=== PATIENT | female | born 1935 | race Caucasian/White ===

== ENCOUNTER 2016-12-12 15:20 | Inpatient (IN) | payer OTHER ==
[~2016-12-12] VITALS: Ht 160 cm; Wt 81.0 kg
--- NOTE | ~2016-12-12 | D ---
[facility] [place] [address] DISCHARGE SUMMARY Name: DONITA RICHTER Room #: 461-P [facility] IN M.R.#: [id number] Admission: 12/12/16 Attend Phys: Omid Kamara MD Discharge: 12/19/16 Date of : 37 Report #: [id number] THIS REPORT FOR: //name// CC: Omid Kamara FINAL DIAGNOSES: 1. Asthma exacerbation. 2. Acute bronchitis. 3. Diabetes type 2. 4. Hypertension. 5. Chronic diastolic congestive heart failure. HOSPITAL COURSE: The patient was admitted with shortness of breath. She was treated for asthma exacerbation and acute bronchitis. There was really no major infiltrate on x-ray. She received steroids, antibiotics, nebulized treatments, and her home medications. Blood sugars were elevated due to steroids and Amaryl was added. After receiving IV fluids, the ER felt that there was a degree of pulmonary edema. Echo showed normal LV function by consideration of diastolic dysfunction. Her BNP was elevated. She responded to oral diuretics. She still had a lot of nonproductive cough and wheezing slow recovery process and required inpatient care. Finally on the day of discharge, she was improved with less cough. She was weaned off oxygen. Edema was improved. Blood sugars were down with Amaryl. PHYSICAL EXAMINATION: VITAL SIGNS: On the day of discharge, her vital signs were stable. HEAD AND NECK: Unremarkable. LUNGS: Had very faint expiratory wheezing on the right base. HEART: Regular. ABDOMEN: Soft, normal bowel sounds. EXTREMITIES: Showed 1+ edema. DISPOSITION: She will be discharged to [facility] assisted living. Diabetic diet. Activity as tolerated. Follow up with Dr. Berman in 1 week. She will resume all home medications plus albuterol inhaler p.r.n., Lasix 20 mg daily p.r.n., prednisone taper over 3 weeks, Zithromax for 5 more days, and Amaryl 1 mg daily. <ELECTRONICALLY SIGNED> By: Ever Babin MD 12/20/16899 0837 Ever Babin MD /nt
--- NOTE | ~2016-12-12 | EKG ---
[address] [place] [address] ELECTROCARDIOGRAM REPORT Name: DONITA RICHTER Room #: 461-P ADM IN M.R.#: [id number] Admission: 12/12/16 Attend Phys: Omid Kamara MD Discharge: Date of : 36 Report #: [id number] THIS REPORT FOR: //name// [facility] ED Test Date: 2016-12-12 Test Time: 15:56:47 Pat Name: DONITA RICHTER Department: Room: [facility] Gender: F [employer] Director: MZOOK : 1935 Requested By: Mel Gooden Order Number: [id number] MD: Tru Yoon Measurements Intervals [place] Rate: 91 P: 101 [place]: 188 QRS: 60 QRSD: 86 T: -27 QT: 341 QTc: 420 Interpretive Statements Sinus rhythm Atrial premature complexes Borderline low voltage, extremity leads No previous ECG available for comparison Electronically Signed On 12-13-2016 8:35:44 CDT by Tru Yoon [email or web address] <ELECTRONICALLY SIGNED> By: Tru Yoon MD, [facility] 12/13/16 0835 1556 155 Tru Yoon MD, [facility] /EPI
--- NOTE | ~2016-12-12 | H ---
[facility] [place] [address] HISTORY AND PHYSICAL Name: DONITA RICHTER Room #: 461-P ADM IN M.R.#: [id number] Admission: 12/12/16 Attend Phys: Omid Kamara MD Discharge: Date of : 36 Report #: [id number] THIS REPORT FOR: //name// CC: Omid Kamara DATE OF SERVICE: 12/12/2016 CHIEF COMPLAINT: Weakness and shortness of breath. HISTORY OF PRESENT ILLNESS: The patient is an 81-year-old female from [facility] the [facility] who was admitted through the Emergency Room with weakness, shortness of breath and productive cough. She reports intermittent subjective fevers and global weakness. She has had sinus congestion, cough and wheezing for about 2 weeks. She was diagnosed and treated for influenza in September and then developed pneumonia and was hospitalized for about 5 days. She feels like her symptoms have not cleared. PAST MEDICAL HISTORY: Asthma, COPD, TIA, hypertension, hypothyroidism, dyslipidemia, diabetes type 2, depression, anxiety. PAST SURGICAL HISTORY: Noncontributory. FAMILY HISTORY: Unknown. SOCIAL HISTORY: She lives in the assisted living apartments at of the [facility] for a number of years. No chronic alcohol or tobacco use. ALLERGIES: CODEINE, FENTANYL, AVELOX, PENICILLIN, and SULFA. MEDICATIONS: Vitamin D, albuterol, Xanax, Norvasc, Colace, gabapentin, budesonide inhaler, calcium, Lexapro, Lamictal, aspirin, clonidine, Levoxyl, lisinopril, lovastatin, metformin, hydrocodone, B12, MiraLax, Tylenol, Macrobid prophylactic, hydralazine. REVIEW OF SYSTEMS: She denies headache, chest pain, shortness of breath, abdominal pain, nausea, vomiting, diarrhea, constipation, dysuria, syncope. PHYSICAL EXAMINATION: VITAL SIGNS: Temperature 36.8, pulse 91, respirations 18, blood pressure 136/62, O2 sat 91-96% on room air. GENERAL: She is awake and alert, in no distress. HEENT: Unremarkable. LUNGS: Faint expiratory wheezing. She is not requiring oxygen. HEART: Regular, no murmur. ABDOMEN: Soft, normoactive bowel sounds. EXTREMITIES: No edema. [address] [address] HISTORY AND PHYSICAL Name: DONITA RICHTER Room #: 1-[facility] IN [facility].#: [id number] Admission: 12/12/16 Attend Phys: Omid Kamara MD Discharge: Date of : 36 Report #: [id number] NEUROLOGIC: Motor strength 3-4/5 throughout. LABORATORY DATA: CBC, basic chemistry were fairly unremarkable. Troponin was negative. Albumin 2.9, influenza is negative. Chest x-ray suggests a left lower lobe interstitial infiltrate. ASSESSMENT: 1. Community acquired pneumonia. 2. Chronic obstructive pulmonary disease exacerbation. 3. Hypertension. 4. Diabetes type 2. 5. Mild protein calorie malnutrition with albumin 2.9. PLAN: She will be admitted for pulmonary treatment including antibiotics, nebulized treatments and steroids for now. Home medications to continue and Lovenox for DVT prophylaxis. <ELECTRONICALLY SIGNED> By: Ever Babin MD 12/13/16 1706 0928 1013 Ever Babin MD /nt
--- NOTE | ~2016-12-12 | 2DMMODE ---
[facility] [address] [place] [address] 2 D/M-MODE ECHOCARDIOGRAM Name: DONITA RICHTER S Room #: 461-P ADM IN M.R.#: [id number] Admission: 12/12/16 Attend Phys: Tara Thomas Discharge: Date of : 37 Date of Service: 12/16/16 1244 Report #: [id number] THIS REPORT FOR: //name// APPROVED REPORT Study performed: 12/16/2016 11:12:53 EXAM: Comprehensive 2D, Doppler, and color-flow Echocardiogram Patient Location: Bedside Room #: 461 Blood Pressure: 153/49 mmHg HR: 94 bpm Other Information Study Quality: Good Indications Congestive Heart Failure COPD Diabetes Hypertension/HDD 2D Dimensions RVDd: 37.16 mm LVEF(%): 58.55 (>50%) IVSd: 7.44 (7-11mm) LVOT Diam: 18.83 (18-24mm) LVDd: 43.52 mm PWd: 7.69 (7-11mm) Ascending Aorta: 23.30 mm LVDs: 30.15 (25-40mm) Aortic Root: 25.41 mm Newell's LVEF: 58.55 % Volumes Left Atrial Volume (Systole) Single Plane 4CH: 47.91 mL Single Plane 2CH: 35.83 mL LA ESV Index: 25.00 mL/m2 Aortic Valve AoV Peak Solomon.: 1.38 m/s AO Peak Gr.: 7.64 mmHg LV Max P.22 mmHg LV Max: 1.03 m/s Mitral Valve E/A Ratio: 1.4 [facility] [address] [place] [address] 2 D/M-MODE ECHOCARDIOGRAM Name: DONITA RICHTER Ivet Room #: 461-P [facility] IN [facility].#: [id number] Admission: 12/12/16 Attend Phys: Tara Thomas Discharge: Date of : 37 Date of Service: 12/16/16 1244 Report #: [id number] MV Decel. Time: 160.95 ms MV E Max Solomon.: 1.30 m/s MV A Solomon.: 0.94 m/s MV PHT: 46.68 ms Pulmonary Valve PV Peak Solomon.: 1.17 m/s PV Peak Gr.: 5.43 mmHg Pulmonary Vein P Vein S: 78.2 m/s P Vein D: 66.0 m/s P Vein A Dur.: 26.1 m/s PVa Duration: 92 Tricuspid Valve TR Peak Solomon.: 3.28 m/s TR Peak Gr.: 43.16 mmHg Left Ventricle The left ventricle is normal size. There is normal LV segmental wall motion. There is normal left ventricular wall thickness. Left ventricular systolic function is hyperdynamic. LVEF is >70%. The left ventricular diastolic function is normal. Right Ventricle The right ventricle is normal size. The right ventricular systolic function is normal. Atria The left atrium size is normal. The right atrium size is normal. Aortic Valve The aortic valve is grossly normal in structure. No aortic regurgitation is present. There is no aortic valvular stenosis. Mitral Valve The mitral valve is normal in structure. Mild mitral regurgitation. No evidence of mitral valve stenosis. Tricuspid Valve The tricuspid valve is normal in structure. There is mild tricuspid regurgitation. The right atrial pressure is estimated at mmHg. There is moderate pulmonary hypertension. The estimated PAP was 43 mmHg. Plus the right atrial pressure. [facility] [address] [place] [address] 2 D/M-MODE ECHOCARDIOGRAM Name: DONITA RICHTER Room #: 461-P ADM IN .R.#: [id number] Admission: 12/12/16 Attend Phys: Tara Thomas Discharge: Date of : 37 Date of Service: 12/16/16 1244 Report #: [id number] Pulmonic Valve The pulmonary valve is normal in structure. There is no pulmonic valvular regurgitation. Great Vessels The aortic root is normal in size. IVC is not well visualized. Pericardium There is no pericardial effusion. <Conclusion> Left ventricular systolic function is hyperdynamic. There is normal LV segmental wall motion. LVEF >70%. The left ventricular diastolic function is normal. The aortic valve is grossly normal in structure. No aortic regurgitation or stenosis. The mitral valve is normal in structure. Mild mitral regurgitation. There is moderate pulmonary hypertension. The estimated pulmonary artery pressure was 43 mmHg. Plus the right atrial pressure. There is no pericardial effusion. <ELECTRONICALLY SIGNED> By: Tru Yoon MD, FACC 12/16/16 1244 1244 1244 Tru Yoon MD, FACC /INF
[~2016-12-12 15:20] MED LIST: ACCUNEB SO1.25 MG/1; ASPIRIN325 PO; B12INJ PO; CLONIDINE0.1 PO; COLACE100 MG PO; GABAPENTIN 100100 MG PO; HYDROCODON-ACE1 EAC5; KLOR-CON 1010 MEQ PO; LAMICTAL100 MG PO; LEVOTHYROXINE0.05 MG PO; LEXAPRO 10 MG T10 M1 PO; LISINOPRIL20 MG PO; LORTAB 10-3251 EACH PO; LOVASTATIN 20 M20 MG PO; METFORMIN HCL500 MG; METFORMIN HCL500 MG PO; MILK OF MA2400 MG/10 PO; NORVASC10 MG PO; TUMS; VITAMIN D3400 UNIT PO; XANAX 0.25 MG0.25 MG PO; ZOLOFT100 MG PO; ZOLOFT50 MG PO; [UNRECOGNIZED DRUG - OTHER]
[2016-12-12 15:23] VITALS: BP 150/51
[2016-12-12 17:29] LABS: HEMATOCRIT 30.4 % (37.0-47.0); HEMOGLOBIN 10.2 gm/dL (12.0-15.0); MANUAL DIFF YES; MCH 30.7 pg (26.0-34.0); MCHC 33.5 g/dL (28.0-37.0); MCV 91.7 fL (80.0-100.0); PLATELET COUNT 295 thou/uL (150-400); RBC 3.31 mil/uL (4.20-5.00); RDW 15.2 % (10.5-14.5); WBC 8.4 thou/uL (4.0-11.0)
[2016-12-12 17:38] LABS: ANION GAP 13 mmol/L (7-16); BUN 18 mg/dL (7-18); CALCIUM 9.7 mg/dL (8.5-10.1); CHLORIDE 105 mmol/L (98-107); CO2 19 mmol/L (21-32); CREATININE 1.1 mg/dL (0.6-1.0); GLUCOSE 153 mg/dL (74-106); POTASSIUM 4.4 mmol/L (3.5-5.1); SODIUM 137 mmol/L (136-145)
[2016-12-12 17:45] LABS: ALBUMIN 2.9 g/dL (3.4-5.0); ALKALINE PHOSPHATASE 59 U/L (46-116); SGOT 11 U/L (15-37); SGPT 9 U/L (30-65); TOTAL BILIRUBIN 0.2 mg/dL (<0.1-1.0); TOTAL PROTEIN 7.7 g/dL (6.4-8.2); TROPONIN-I < 0.04 ng/mL (<0.04-0.07)
[2016-12-12 17:48] LABS: ABSOLUTE NEUTROPHILS 4.5 thou/uL (1.4-8.2); TOTAL CELL COUNT 100
[2016-12-12 19:48] VITALS: BP 170/61
[2016-12-12 20:00] VITALS: BP 183/57
[2016-12-12] MEDS ORDERED: MIRALAX17 G1 PO (20:35)
[2016-12-12] MEDS ORDERED: SYSTANE ULTRA1 EACH OP (20:36)
[2016-12-12] MEDS ORDERED: MACROBID 100 M100 M2 PO (20:37)
[2016-12-12] MEDS ORDERED: TYLENOL325 MG PO (20:37)
[2016-12-12] MEDS ORDERED: ASPIR 8181 M1 PO (20:38)
[2016-12-12] MEDS ORDERED: HYDRALAZINE 2525 MG PO (20:38)
[2016-12-12] MEDS ORDERED: LOPERAMIDE 2 MG2 M1 PO (20:39)
[2016-12-12 23:15] VITALS: BP 183/59
[2016-12-13 04:02] VITALS: BP 152/62
[2016-12-13 07:38] VITALS: BP 136/62
[2016-12-13 11:22] VITALS: BP 137/57
[2016-12-13 15:37] VITALS: BP 142/53
[2016-12-13 19:34] VITALS: BP 130/47
[2016-12-14 05:00] VITALS: BP 141/55
[2016-12-14 06:07] LABS: HEMATOCRIT 25.9 % (37.0-47.0); HEMOGLOBIN 8.6 gm/dL (12.0-15.0); MCH 30.4 pg (26.0-34.0); MCHC 33.3 g/dL (28.0-37.0); MCV 91.2 fL (80.0-100.0); RBC 2.83 mil/uL (4.20-5.00); WBC 7.8 thou/uL (4.0-11.0)
[2016-12-14 06:15] LABS: CREATININE 0.9 mg/dL (0.6-1.0); POTASSIUM 4.4 mmol/L (3.5-5.1)
[2016-12-14 07:50] VITALS: BP 131/49
[2016-12-14 11:31] VITALS: BP 112/45
[2016-12-14 16:09] VITALS: BP 125/47
[2016-12-14 19:20] VITALS: BP 136/53
[2016-12-15 03:25] VITALS: BP 99/70
[2016-12-15 06:04] VITALS: BP 142/53
[2016-12-15 06:40] LABS: HEMOGLOBIN 8.9 gm/dL (12.0-15.0); MCHC 32.9 g/dL (28.0-37.0); MCV 91.1 fL (80.0-100.0); RBC 2.96 mil/uL (4.20-5.00); RDW 15.2 % (10.5-14.5); WBC 9.4 thou/uL (4.0-11.0)
[2016-12-15 06:54] LABS: CALCIUM 8.8 mg/dL (8.5-10.1); POTASSIUM 4.3 mmol/L (3.5-5.1)
[2016-12-15 08:51] VITALS: BP 144/51
[2016-12-15 12:27] VITALS: BP 136/43
[2016-12-15 15:58] VITALS: BP 140/46
[2016-12-15 19:47] VITALS: BP 150/42
[2016-12-16 03:33] VITALS: BP 153/49
[2016-12-16 06:56] LABS: HEMATOCRIT 26.5 % (37.0-47.0); HEMOGLOBIN 8.9 gm/dL (12.0-15.0); MCH 30.3 pg (26.0-34.0); MCHC 33.6 g/dL (28.0-37.0); MCV 90.2 fL (80.0-100.0); RBC 2.94 mil/uL (4.20-5.00); WBC 8.4 thou/uL (4.0-11.0)
[2016-12-16 07:06] LABS: CALCIUM 8.6 mg/dL (8.5-10.1); CREATININE 0.9 mg/dL (0.6-1.0); POTASSIUM 3.9 mmol/L (3.5-5.1)
[2016-12-16 08:30] VITALS: BP 151/60
[2016-12-16 14:30] VITALS: BP 140/59
[2016-12-16 18:58] VITALS: BP 157/53
[2016-12-17 04:02] LABS: CALCIUM 8.6 mg/dL (8.5-10.1)
[2016-12-17 05:01] VITALS: BP 155/41
[2016-12-17 08:02] VITALS: BP 147/43
[2016-12-17 11:26] VITALS: BP 147/44
[2016-12-17 15:40] VITALS: BP 177/48
[2016-12-17 19:40] VITALS: BP 170/47
[2016-12-17 23:00] VITALS: BP 156/58
[2016-12-18 04:27] LABS: HEMATOCRIT 28.1 % (37.0-47.0); HEMOGLOBIN 9.4 gm/dL (12.0-15.0); MCH 30.5 pg (26.0-34.0); MCHC 33.6 g/dL (28.0-37.0); MCV 90.6 fL (80.0-100.0); RBC 3.1 mil/uL (4.20-5.00); RDW 15.2 % (10.5-14.5); WBC 8.4 thou/uL (4.0-11.0)
[2016-12-18 04:41] LABS: CALCIUM 8.8 mg/dL (8.5-10.1); CREATININE 0.9 mg/dL (0.6-1.0); POTASSIUM 4.3 mmol/L (3.5-5.1)
[2016-12-18 05:08] VITALS: BP 157/62
[2016-12-18 09:23] VITALS: BP 166/62
[2016-12-18 12:21] VITALS: BP 167/47
[2016-12-18 20:38] VITALS: BP 161/64
[2016-12-19 04:00] VITALS: BP 148/44
[2016-12-19 05:10] LABS: CALCIUM 8.5 mg/dL (8.5-10.1); POTASSIUM 4.1 mmol/L (3.5-5.1)
[2016-12-19] MEDS ORDERED: AZITHROMYCIN 2250 MG PO (08:04)
[2016-12-19] MEDS ORDERED: BENZONATATE100 MG PO (08:05)
[2016-12-19] MEDS ORDERED: MUCINEX TA600 MG/TA1 PO (08:06)
[2016-12-19] MEDS ORDERED: DELSYM COU30 MG/5 M1 PO (08:06)
[2016-12-19] MEDS ORDERED: GLIMEPIRIDE1 MG PO (08:07)
[2016-12-19] MEDS ORDERED: PREDNISONE 20 M20 M1 PO (08:07)
[2016-12-19] MEDS ORDERED: VENTOLIN HFA 1818 GM INH (08:08)
[2016-12-19] MEDS ORDERED: LASIX 20 MG TAB20 MG PO (08:11)
[2016-12-19 08:56] VITALS: BP 138/54
[2016-12-19 09:36] VITALS: BP 138/54
[2016-12-19 13:37] VITALS: BP 141/37
== END 2016-12-19 16:22 | disposition short-term general hospital (02) | DRG 190 ==
LOC: ER 15:20 → 4W 18:04 → EROBS 18:04 → 4W 19:50
PROVIDERS: Internal Medicine Geriatric Medicine; Physician Assistant
DX: J44.0 Chronic obstructive pulmonary disease with (acute) lower respiratory infection (principal); J18.9 Pneumonia, unspecified organism; J45.901 Unspecified asthma with (acute) exacerbation; E44.1 Mild protein-calorie malnutrition; I50.32 Chronic diastolic (congestive) heart failure; J44.1 Chronic obstructive pulmonary disease with (acute) exacerbation; E78.5 Hyperlipidemia, unspecified; E03.9 Hypothyroidism, unspecified; I11.0 Hypertensive heart disease with heart failure; J20.9 Acute bronchitis, unspecified; K21.9 Gastro-esophageal reflux disease without esophagitis; E11.9 Type 2 diabetes mellitus without complications; F32.9 Major depressive disorder, single episode, unspecified; F41.9 Anxiety disorder, unspecified; G89.29 Other chronic pain; Z88.6 Allergy status to analgesic agent; Z88.1 Allergy status to other antibiotic agents; Z88.0 Allergy status to penicillin; Z88.2 Allergy status to sulfonamides; Z68.31 Body mass index [BMI] 31.0-31.9, adult; Z86.73 Personal history of transient ischemic attack (TIA), and cerebral infarction without residual deficits
CPT/HCPCS: 10045

== ENCOUNTER 2017-04-10 21:16 | Emergency (ER) | payer OTHER ==
[~2017-04-10] VITALS: Ht 147.3 cm; Wt 76.7 kg
--- NOTE | ~2017-04-10 | EKG ---
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 : 1935 Requested By: Latanya Jaime Order Number: [id number] MD: Tru Yoon Measurements Intervals [place] Rate: 62 P: 74 OR: 171 QRS: 50 QRSD: 98 T: 18 QT: 425 QTc: 432 Interpretive Statements Sinus rhythm Baseline wander in lead(s) II Compared to ECG 12/12/2016 15:56:47 Atrial premature complex(es) no longer present Electronically Signed On 04-11-2017 10:52:14 CDT by Tru Yoon [email or web address] <ELECTRONICALLY SIGNED> By: Tru Yoon MD, [facility] 04/11/17 1052 27 Tru Yoon MD, [facility] /EPI
[~2017-04-10 21:16] MED LIST changes: +ASPIR 8181 M1 PO; +AZITHROMYCIN 2250 MG PO; +BENZONATATE100 MG PO; +DELSYM COU30 MG/5 M1 PO; +GLIMEPIRIDE1 MG PO; +HYDRALAZINE 2525 MG PO; +LASIX 20 MG TAB20 MG PO; +LOPERAMIDE 2 MG2 M1 PO; +MACROBID 100 M100 M2 PO; +MIRALAX17 G1 PO; +MUCINEX TA600 MG/TA1 PO; +PREDNISONE 20 M20 M1 PO; +SYSTANE ULTRA1 EACH OP; +TYLENOL325 MG PO; +VENTOLIN HFA 1818 GM INH
[2017-04-10 22:20] LABS: URINE BILIRUBIN NEGATIVE (Negative); URINE BLOOD NEGATIVE (Negative); URINE COLOR YELLOW; URINE GLUCOSE-RANDOM* NEGATIVE (Negative); URINE KETONES NEGATIVE (Negative); URINE LEUKOCYTES-REFLEX 1+ (Negative); URINE PROTEIN (DIPSTICK) NEGATIVE (Negative); URINE UROBILINOGEN 0.2 E.U./dl (0.2-1.0)
[2017-04-10 22:30] LABS: CASTS None Seen /LPF (None Seen); CRYSTALS None Seen /LPF (None Seen); SQUAMOUS 0-3 Few /LPF (0-3); URINE RBC 0-2 Rare /HPF (0-2); URINE WBC-REFLEX 0-5 Rare /HPF (0-5)
[2017-04-10 23:14] LABS: HEMATOCRIT 28.9 % (37.0-47.0); HEMOGLOBIN 9.7 gm/dL (12.0-15.0); MCH 29.9 pg (26.0-34.0); MCHC 33.6 g/dL (28.0-37.0); MCV 89.1 fL (80.0-100.0); RBC 3.24 mil/uL (4.20-5.00); RDW 14.3 % (10.5-14.5); WBC 6.3 thou/uL (4.0-11.0)
[2017-04-10 23:24] LABS: ANION GAP 10 mmol/L (7-16); BUN 23 mg/dL (7-18); CALCIUM 9.8 mg/dL (8.5-10.1); CHLORIDE 105 mmol/L (98-107); CO2 24 mmol/L (21-32); GLUCOSE 107 mg/dL (74-106); POTASSIUM 4.4 mmol/L (3.5-5.1); SODIUM 139 mmol/L (136-145)
[2017-04-10 23:29] LABS: ALKALINE PHOSPHATASE 66 U/L (46-116); SGOT 18 U/L (15-37); SGPT 14 U/L (30-65); TOTAL BILIRUBIN 0.3 mg/dL (<0.1-1.0); TOTAL PROTEIN 6.5 g/dL (6.4-8.2); TROPONIN-I < 0.04 ng/mL (<0.04-0.07)
== END 2017-04-11 00:35 | disposition home or self-care (01) ==
LOC: ER 21:16
PROVIDERS: Physician Assistant
DX: T78.1XXA Other adverse food reactions, not elsewhere classified, initial encounter (principal); R60.9 Edema, unspecified; I10 Essential (primary) hypertension; E78.00 Pure hypercholesterolemia, unspecified; E03.9 Hypothyroidism, unspecified; E11.9 Type 2 diabetes mellitus without complications; F32.9 Major depressive disorder, single episode, unspecified; F41.9 Anxiety disorder, unspecified; K21.9 Gastro-esophageal reflux disease without esophagitis; Z88.0 Allergy status to penicillin; Z88.2 Allergy status to sulfonamides; Z88.1 Allergy status to other antibiotic agents; Z88.4 Allergy status to anesthetic agent; Z88.5 Allergy status to narcotic agent; X58.XXXA Exposure to other specified factors, initial encounter

== ENCOUNTER 2017-09-15 19:23 | Inpatient (IN) | payer OTHER, MEDICARE ==
[~2017-09-15] VITALS: Ht 177.8 cm; Wt 69.0 kg
--- NOTE | ~2017-09-15 | H ---
[facility] [address] [place] [address] HISTORY AND PHYSICAL Name: DONITA RICHTER Room #: 447-P ADM IN M.R.#: [id number] Admission: 09/15/17 Attend Phys: Omid Kamara MD Discharge: Date of : 36 Report #: [id number] THIS REPORT FOR: //name// CC: Omid Kamara DATE OF SERVICE: 09/16/2017 HISTORY OF PRESENT ILLNESS: This is an 82-year-old female who lives at [facility] and is under the care of Dr. Kamara and she has not been feeling well recently, has had a couple of falls, the last one was yesterday. There was also some discussion that she may have been a little confused during this whole process. She has had cold-like symptoms recently as well, but really no other specific complaints. PAST MEDICAL HISTORY: Significant for history of hypertension. She has hypothyroidism, diabetes, hyperlipidemia. She has depression. CURRENT MEDICATIONS: Included aerosolized DuoNeb or albuterol. She is on vitamin D, alprazolam, amlodipine, docusate, magnesium, gabapentin, budesonide, Lexapro, lamotrigine, aspirin, clonidine, levothyroxine, lisinopril, lovastatin, metformin, hydrocodone, vitamin B12, MiraLax, aspirin, hydralazine and loperamide. ALLERGIES: Include OPIOIDS, specifically CODEINE, FENTANYL, MOXIFLOXACIN, PENICILLIN and SULFA. SOCIAL HISTORY: She lives at [facility]. REVIEW OF SYSTEMS: No specific cardiac, GI, or complaints at this time, does complain of pain, specifically in her left arm, but no other neurologic complaints and is not confused. PHYSICAL EXAMINATION: GENERAL: Shows her to be in no distress. VITAL SIGNS: Stable. HEENT: Otherwise, negative. She has O2 in place. NECK: Supple, without thyromegaly or adenopathy. CHEST: Clear and coarse. CARDIOVASCULAR: Shows a regular rate and rhythm. ABDOMEN: Soft and nontender, without hepatosplenomegaly. EXTREMITIES: Showed no cyanosis, clubbing or edema. NEUROLOGIC: Showed nothing focal at this time. LABORATORY PARAMETERS: Include a creatinine of 1.3, potassium 5.0, WBC 12.3, hemoglobin 9.9. Urinalysis negative. Influenza antigens negative. CT head, CT spine, CT chest, abdomen and pelvis all were without specificity other than she [address] [address] HISTORY AND PHYSICAL Name: DONITA RICHTER Room #: 447-P ADM IN [facility]#: [id number] Admission: 09/15/17 Attend Phys: Omid Kamara MD Discharge: Date of : 36 Report #: [id number] has extensive widespread bilateral lung patchy consolidative infiltrates. ASSESSMENT: This is an 82-year-old female with upper respiratory tract symptoms, but has an abnormal CT scan that suggested that this might be actually an atypical infection. I need to review the films in detail to make sure that we have the correct differential here. Comorbid conditions of degenerative arthritis, hypertension, hyperlipidemia and depression. She needs inpatient management. We have to stop the vancomycin. I think she had a local reaction in the vein from this but will continue cefepime and azithromycin. <ELECTRONICALLY SIGNED> By: Jasen Berman MD 09/20/17 1211 1026 1051 Jasen Berman MD /[facility]
--- NOTE | ~2017-09-15 | EKG ---
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
--- NOTE | ~2017-09-15 | HC ---
[facility] [place] [address] CONSULTATION Name: DONITA RICHTER Room #: 447-P ADM IN M.R.#: [id number] Admission: 09/15/17 Attend Phys: Omid Kamara MD Discharge: Date of : 36 Report #: [id number] THIS REPORT FOR: //name// CC: Omid Kamara REASON FOR CONSULTATION: I was asked to evaluate concerning bilateral pulmonary infiltrates. HISTORY OF PRESENT ILLNESS: The patient is an 82-year-old past smoker who presents with a several week history of increased malaise, some shortness of breath, intermittent nonproductive cough without fever, chills or sweats. She had episodes of confusion. She has had a few falls. Because of this, she presents to [facility] for further evaluation. She is found to be hypoxic, now on 2 liters of oxygen per nasal cannula. Chest x-ray showed bilateral pulmonary infiltrates, which were confirmed on CT scan noting patchy consolidative infiltrates. She has had no travel. No tuberculosis exposure. No HIV risk factors. She has been in a senior living for 3 years with no positive PPD reported. She has had previous pneumonia. May have underlying COPD, she is on aerosolized DuoNeb. She lives in the senior living unit at [facility]. She does not know of any specific exposure to ill persons. ALLERGIES: CODEINE, FENTANYL, PENICILLIN with rash, SULFA, and MOXIFLOXACIN. She does tolerate cephalosporins. MEDICATIONS: As noted on her MAR, now including prednisone, azithromycin, and cefepime. FAMILY HISTORY: Noncontributory. SOCIAL HISTORY: Quit smoking 3 years ago. No significant alcohol intake. REVIEW OF SYSTEMS: Denies any rash, chest pain, hemoptysis, lymphadenopathy, weight loss, GI or complaints. I do note that she was on nitrofurantoin recently. PHYSICAL EXAMINATION: VITAL SIGNS: Afebrile and hemodynamically stable. GENERAL: She was sitting up in bed, in no acute distress. She had oxygen on at 2 liters per nasal cannula. SKIN: Unremarkable. LYMPH: Unremarkable. Mildly obese. 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 Dentition in fair repair. Several teeth missing. No thrush or lesions otherwise. NECK: Supple. LUNGS: Few crackles heard in the bases. No consolidation. No rub. HEART: Regular without murmur. [address] [address] CONSULTATION Name: DONITA RICHTER Room #: 447-P [facility] IN ..#: [id number] Admission: 09/15/17 Attend Phys: Omid Kamara MD Discharge: Date of : 36 Report #: [id number] ABDOMEN: Soft, nontender, no hepatosplenomegaly or mass. EXTREMITIES: Unremarkable other than trace peripheral edema in the right, 1+ in the left. NEUROLOGIC: Normal. LABORATORY STUDIES: Sodium 140, potassium 4, bicarbonate 25, creatinine 0.9. Liver function test normal. BNP 1158. Hemoglobin 11, platelet count 433,000, WBC 9.6, sedimentation rate 77. CT of the head negative. CT of the spine, degenerative arthritis. CT of the chest, bilateral patchy consolidating infiltrates fairly extensive. Chest x-ray in March noted mild atelectasis or scarring in the left mid lung, otherwise unremarkable. Urinalysis unremarkable. MRSA screen negative. T-SPOT pending. Blood culture is negative. Influenza antigen negative. IMPRESSION: An 82-year-old previous smoker with bilateral consolidating infiltrates. This is new from March 2017. Symptomatically appears to be an acute process. She has an atypical look for aspiration. Other considerations would be atypical viral or bacterial infection, fungal infection, doubt tuberculosis or mycobacterial infection. Vasculitis possible, but less likely given the findings on CT scan. No sinus disease or kidney troubles. RECOMMENDATIONS: We will check viral respiratory panel, fungal serology, ANCA, screen for legionella, mycoplasma, chlamydia. We will see how she does over the next several days. Hold off on video swallow at this time. <ELECTRONICALLY SIGNED> By: Sonido Berman MD 09/22/17 1136 1026 1123 Sonido Berman MD /nt
--- NOTE | ~2017-09-15 | D ---
[facility] [address] [place] [address] DISCHARGE SUMMARY Name: DONITA RICHTER Room #: 447-P [facility] IN M.R.#: [id number] Admission: 09/15/17 Attend Phys: Omid Kamara MD Discharge: 09/25/17 Date of : 36 Report #: [id number] THIS REPORT FOR: //name// CC: Omid Kamara DATE OF SERVICE: 09/25/2017 FINAL DIAGNOSES: 1. Pneumonia. 2. Asthma exacerbation. 3. Diabetes type 2. HOSPITAL COURSE: The patient was admitted from [facility] with shortness of breath and treated based on working diagnosis of pneumonia. She received antibiotics and nebulized treatments. She was slow to improve and she was requiring oxygen with a lot of bronchospasm with wheezing. Steroids were added. Blood sugars were treated in the usual fashion. Chest x-ray and CT were showing bilateral pulmonary infiltrates. Infectious Disease and Pulmonary were consulted. Additional culture studies did not prove a direct organism. With supportive measures and time her respiratory status improved. She was weaned off oxygen and cough, congestion and wheezing improved significantly. However, CT was still showing bilateral infiltrates. Doppler study of the leg was negative for DVT and video swallow was negative for aspiration. Followup CT was showing improvement. PHYSICAL EXAMINATION: GENERAL: On the day of discharge she was awake and alert. VITAL SIGNS: Stable. LUNGS: Clear. HEART: Regular. ABDOMEN: Soft, normoactive bowel sounds. EXTREMITIES: No edema. DISPOSITION: She will be discharged to [facility] with diabetic diet, activity as tolerated and I have signed all her transfer medication list. She will follow up with Dr. Berman and Dr. Robison within 3 weeks. She will have a slow prednisone taper and a followup CT in 3 weeks. <ELECTRONICALLY SIGNED> By: Ever Babin MD 09/26/17 0902 1349 1730 Ever Babin MD /nt
[~2017-09-15 19:23] MED LIST changes: +SYSTANE ULTRA 010 ML OPHTHALMIC; -SYSTANE ULTRA1 EACH OP
[2017-09-15 19:25] VITALS: BP 129/45
[2017-09-15 20:35] LABS: HEMATOCRIT 30.1 % (37.0-47.0); HEMOGLOBIN 9.9 gm/dL (12.0-15.0); MCH 28.8 pg (26.0-34.0); MCHC 32.8 g/dL (28.0-37.0); MCV 87.9 fL (80.0-100.0); RBC 3.43 mil/uL (4.20-5.00); WBC 12.3 thou/uL (4.0-11.0)
[2017-09-15 20:44] LABS: ANION GAP 7 mmol/L (7-16); BUN 27 mg/dL (7-18); CALCIUM 9.7 mg/dL (8.5-10.1); CHLORIDE 103 mmol/L (98-107); CO2 26 mmol/L (21-32); CREATININE 1.3 mg/dL (0.6-1.0); GLUCOSE 98 mg/dL (74-106); SODIUM 136 mmol/L (136-145)
[2017-09-15 20:52] LABS: ALBUMIN 2.9 g/dL (3.4-5.0); SGOT 20 U/L (15-37); SGPT 18 U/L (30-65); TOTAL BILIRUBIN 0.2 mg/dL (<0.1-1.0); TOTAL PROTEIN 6.8 g/dL (6.4-8.2); TROPONIN-I < 0.04 ng/mL (<0.06)
[2017-09-15 22:04] LABS: URINE BILIRUBIN NEGATIVE (Negative); URINE BLOOD NEGATIVE (Negative); URINE CLARITY CLEAR; URINE COLOR YELLOW; URINE GLUCOSE-RANDOM* NEGATIVE (Negative); URINE KETONES NEGATIVE (Negative); URINE LEUKOCYTES-REFLEX NEGATIVE (Negative); URINE NITRITE-REFLEX NEGATIVE (Negative); URINE PROTEIN (DIPSTICK) NEGATIVE (Negative); URINE UROBILINOGEN 0.2 E.U./dl (0.2-1.0)
[2017-09-15 23:30] VITALS: BP 149/47
[2017-09-15 23:55] VITALS: BP 136/44
[2017-09-16 00:25] VITALS: BP 155/61
[2017-09-16 07:45] VITALS: BP 135/43
[2017-09-16 11:16] VITALS: BP 153/40
[2017-09-16 14:42] VITALS: BP 136/43
[2017-09-16 19:28] VITALS: BP 148/43
[2017-09-17 04:10] VITALS: BP 167/45
[2017-09-17 07:49] VITALS: BP 188/54
[2017-09-17 14:24] VITALS: BP 185/69
[2017-09-17] MEDS ORDERED: ANTIFUNGAL30 GM (16:08)
[2017-09-17 19:20] VITALS: BP 181/77
[2017-09-17] MEDS ORDERED: DELSYM30 MG/5 M1 PO (19:34)
[2017-09-17] MEDS ORDERED: NITROFURANTOIN100 MG PO (19:59)
[2017-09-18 00:11] VITALS: BP 138/55
[2017-09-18 04:39] VITALS: BP 157/49
[2017-09-18 06:17] LABS: ABSOLUTE NEUTROPHILS 5.5 thou/uL (1.4-8.2); BASOPHILS 2.5 % (0.0-2.0); EOSINOPHILS 8.2 % (0.0-3.0); HEMATOCRIT 31.8 % (37.0-47.0); HEMOGLOBIN 10.5 gm/dL (12.0-15.0); LYMPHOCYTES 17.1 % (24.0-44.0); MCV 87.6 fL (80.0-100.0); MONOCYTES 11.9 % (1.0-8.0); PLATELET COUNT 378 thou/uL (150-400); POLYS 60.3 % (36.0-66.0); RBC 3.63 mil/uL (4.20-5.00); RDW 14.6 % (10.5-14.5); WBC 9.2 thou/uL (4.0-11.0)
[2017-09-18 06:34] LABS: CALCIUM 9.1 mg/dL (8.5-10.1); CREATININE 0.9 mg/dL (0.6-1.0); POTASSIUM 3.7 mmol/L (3.5-5.1)
[2017-09-18 08:33] VITALS: BP 101/33
[2017-09-18 16:04] VITALS: BP 139/40
[2017-09-18 19:24] VITALS: BP 180/64
[2017-09-19 03:47] VITALS: BP 159/60
[2017-09-19 08:00] VITALS: BP 110/40
[2017-09-19 15:24] VITALS: BP 153/64
[2017-09-19 16:00] VITALS: BP 153/64
[2017-09-19 20:33] VITALS: BP 129/43
[2017-09-20 01:10] VITALS: BP 117/43
[2017-09-20 04:37] LABS: CALCIUM 9.7 mg/dL (8.5-10.1); CREATININE 0.8 mg/dL (0.6-1.0); POTASSIUM 5.3 mmol/L (3.5-5.1)
[2017-09-20 08:03] VITALS: BP 148/47
[2017-09-20 17:07] VITALS: BP 179/42
[2017-09-20 17:55] LABS: BE(vivo) -0.6 mmol/L (-2 to +3); HCO3 22.5 mmol/L (22.0-26.0); PCO2 32.1 mmHg (35.0-45.0); PO2 62.1 mmHg (80.0-100.0); pH 7.463 (7.360-7.450); sO2 93.3 % (92.0-98.0)
[2017-09-20 19:50] VITALS: BP 163/38
[2017-09-21 00:48] VITALS: BP 133/55
[2017-09-21 05:01] VITALS: BP 179/48
[2017-09-21 06:44] LABS: HEMATOCRIT 33.1 % (37.0-47.0); MCH 28.8 pg (26.0-34.0); MCHC 33.3 g/dL (28.0-37.0); MCV 86.5 fL (80.0-100.0); RBC 3.83 mil/uL (4.20-5.00); RDW 14.3 % (10.5-14.5); WBC 9.6 thou/uL (4.0-11.0)
[2017-09-21 06:55] LABS: CALCIUM 10.1 mg/dL (8.5-10.1); CREATININE 0.9 mg/dL (0.6-1.0)
[2017-09-21 19:22] VITALS: BP 137/44
[2017-09-22 04:28] VITALS: BP 161/40
[2017-09-22 04:59] LABS: HEMATOCRIT 31.9 % (37.0-47.0); HEMOGLOBIN 10.4 gm/dL (12.0-15.0); MCH 28.6 pg (26.0-34.0); MCHC 32.7 g/dL (28.0-37.0); MCV 87.5 fL (80.0-100.0); RBC 3.64 mil/uL (4.20-5.00); RDW 14.8 % (10.5-14.5); WBC 8.2 thou/uL (4.0-11.0)
[2017-09-22 05:11] LABS: CALCIUM 9.6 mg/dL (8.5-10.1); CREATININE 0.9 mg/dL (0.6-1.0); POTASSIUM 4.1 mmol/L (3.5-5.1)
[2017-09-22 07:38] VITALS: BP 160/57
[2017-09-22 10:35] VITALS: BP 179/50
[2017-09-22 16:01] VITALS: BP 183/73
[2017-09-22 22:32] VITALS: BP 147/40
[2017-09-23 06:39] VITALS: BP 169/65
[2017-09-23 08:14] VITALS: BP 152/57
[2017-09-23 14:49] VITALS: BP 187/74
[2017-09-23 17:53] VITALS: BP 141/55
[2017-09-23 19:07] LABS: HISTOPLASMA MYCELIAL-ID Negative (Negative)
[2017-09-23 19:59] VITALS: BP 132/42
[2017-09-23 20:08] LABS: HISTOPLASMA MYCELIAL-CF Negative (Neg:<1:2)
[2017-09-24 04:25] VITALS: BP 149/56
[2017-09-24 07:33] VITALS: BP 140/46
[2017-09-24 17:50] VITALS: BP 158/55
[2017-09-24 18:04] VITALS: BP 175/60
[2017-09-24 21:10] VITALS: BP 186/53
[2017-09-25 05:16] LABS: HEMATOCRIT 35.3 % (37.0-47.0); HEMOGLOBIN 11.5 gm/dL (12.0-15.0); MCH 28.7 pg (26.0-34.0); MCHC 32.6 g/dL (28.0-37.0); RBC 4.01 mil/uL (4.20-5.00); RDW 14.8 % (10.5-14.5); WBC 12.4 thou/uL (4.0-11.0)
[2017-09-25 05:25] LABS: CALCIUM 10.3 mg/dL (8.5-10.1); CREATININE 1.1 mg/dL (0.6-1.0); POTASSIUM 4.5 mmol/L (3.5-5.1)
[2017-09-25 08:55] VITALS: BP 147/53
[2017-09-25 08:55] LABS: T-SPOT.TB Negative
[2017-09-25] MEDS ORDERED: OSELB75 PO (13:12)
[2017-09-25] MEDS ORDERED: PREDNISONE 10 M10 MG PO (13:20)
[2017-09-25] MEDS ORDERED: AZITHROMYCIN 2250 MG PO (13:49)
[2017-09-25] MEDS ORDERED: CEFDINIR300 MG PO (13:49)
[2017-09-25 15:12] VITALS: BP 145/62
[2017-09-26 01:06] LABS: ADENOVIRUS Negative (Negative); INFLUENZA A Negative (Negative); INFLUENZA B Negative (Negative); METAPNEUMOVIRUS Negative (Negative); PARAINFLUENZA 1 Negative (Negative); PARAINFLUENZA 2 Negative (Negative); PARAINFLUENZA 3 Negative (Negative); RHINOVIRUS Negative (Negative); RSV A Negative (Negative); RSV B Negative (Negative)
[2018-04-16] MEDS ORDERED: METOPROLOL SUCC50 MG PO (12:17)
[2018-04-16] MEDS ORDERED: AMLODIPINE BESY10 MG PO (12:17)
[2018-04-16] MEDS ORDERED: MUCINEX600 MG PO (12:18)
[2018-04-16] MEDS ORDERED: DELSYM COU30 MG/5 M1 PO (12:18)
[2018-04-16] MEDS ORDERED: COZAAR100 MG PO (12:18)
== END 2017-09-25 15:30 | DRG 193 ==
LOC: ER 19:23 → EROBS 22:55 → 4S 22:55 → 2N 23:54 → 4S 09-18 01:21 → ENTRNSPT 09-25 15:24 → EDTRNSPTSTS 09-25 15:27 → 4S 09-25 15:30
PROVIDERS: Emergency Medicine; Internal Medicine; Internal Medicine Geriatric Medicine; Internal Medicine Pulmonary Disease; Specialist
DX: J18.9 Pneumonia, unspecified organism (principal); J96.00 Acute respiratory failure, unspecified whether with hypoxia or hypercapnia; J45.901 Unspecified asthma with (acute) exacerbation; I10 Essential (primary) hypertension; E78.5 Hyperlipidemia, unspecified; E03.9 Hypothyroidism, unspecified; E11.9 Type 2 diabetes mellitus without complications; K21.9 Gastro-esophageal reflux disease without esophagitis; F32.9 Major depressive disorder, single episode, unspecified; F41.9 Anxiety disorder, unspecified; G89.29 Other chronic pain; Z79.899 Other long term (current) drug therapy; Z88.2 Allergy status to sulfonamides; Z88.5 Allergy status to narcotic agent; Z88.1 Allergy status to other antibiotic agents; Z88.0 Allergy status to penicillin; Z87.891 Personal history of nicotine dependence
CPT/HCPCS: 10081; 10100

== ENCOUNTER 2017-10-13 10:56 | Inpatient (IN) | payer OTHER ==
[~2017-10-13] VITALS: Ht 147.3 cm; Wt 67.5 kg
--- NOTE | ~2017-10-13 | D ---
[facility] [place] [place] [address] DISCHARGE SUMMARY Name: DONITA RICHTER Room #: 439-P [facility] IN M.R.#: [id number] Admission: 10/13/17 Attend Phys: Ever Babin MD Discharge: 10/16/17 Date of : 36 Report #: [id number] THIS REPORT FOR: //name// CC: Ever Kamara FINAL DIAGNOSES: 1. Orthostatic hypotension. 2. Chronic obstructive pulmonary disease. 3. Diabetes type 2. 4. Hypertension. 5. Hyperkalemia. HOSPITAL COURSE: The patient was admitted from [facility] with confusion and weakness. She had relative hyperkalemia on admission and this was treated with fluids and medical support. She was noted to be orthostatic and several of her antihypertensives were held. During her stay, she continued with lisinopril and she had blood pressures supine about 150/60, standing was 105/50. She was able to participate with physical therapy and was walking 60 feet mod independent. Other medications were continued. She had no respiratory issues. PHYSICAL EXAMINATION ON THE DAY OF DISCHARGE: GENERAL: She was resting comfortably in the bedside chair. VITAL SIGNS: She was afebrile with a blood pressure 150/59, O2 sat 95% on room air. LUNGS: Clear with no wheezing. HEART: Had regular sounds. ABDOMEN: Soft. EXTREMITIES: Showed no edema. DISPOSITION: She will return to [facility], diabetic diet, activity as tolerated. Follow up with Dr. Kamara in 1 week. Only antihypertensive at this time is lisinopril 10 mg a day and I have asked them to check standing blood pressures daily. Other home medications to continue. <ELECTRONICALLY SIGNED> By: Ever Babin MD 10/17/17 1108 1242 1810 Ever Babin MD /nt
--- NOTE | ~2017-10-13 | H ---
[facility] [address] [place] [address] HISTORY AND PHYSICAL Name: DONITA RICHTER Room #: 439-P [facility] IN M.R.#: [id number] Admission: 10/13/17 Attend Phys: Ever Babin MD Discharge: 10/16/17 Date of : 36 Report #: [id number] THIS REPORT FOR: //name// CC: Ever Anne Asad DATE OF SERVICE: 10/13/2017 HISTORY OF PRESENT ILLNESS: This is an 82-year-old female with recent fall at [facility]. This is a patient who has been having difficulty over the last couple of months, was in the hospital in August for pneumonia and there was no definitive organism identified. She was then sent back to the [facility] and has been weakened ever since. Now over the last week, she has been more confused, weaker, and had a fall where she may have hit her head, but we do not know the details of the fall and so she was sent to the Emergency Room. In the Emergency Room, CT imaging was negative. There were no focal findings and she was subsequently admitted due to her generalized weakness. PAST MEDICAL HISTORY: Noteworthy for diabetes, hypothyroidism, and hyperlipidemia. She has chronic anxiety. MEDICATIONS: She takes glimepiride, aerosolized albuterol as well as Lamictal, lovastatin, alprazolam, amlodipine, gabapentin, budesonide, aerosolized, calcium carbonate, potassium chloride, Lasix, diphenhydramine, Lexapro, levothyroxine, lisinopril, metformin, vitamin B12, and aspirin. ALLERGIES: INCLUDE CODEINE, FENTANYL, MOXIFLOXACIN, PENICILLIN, AND SULFA, details not clear. FAMILY HISTORY: Really noncontributory at 82 years of age. SOCIAL HISTORY: No smoking or alcohol of any significance. She lives at [facility] and appears to be declining. Family is involved in her care. PHYSICAL EXAMINATION: GENERAL: Shows her sitting at the bedside. She is trying to eat breakfast, nurses at the bedside as well, but she looks very weak and unsteady. VITAL SIGNS: Blood pressure was 150/70. In the Emergency Room 20 mmHg drop in blood pressure. HEENT: Otherwise, negative. NECK: Supple, without thyromegaly or adenopathy. CHEST: Clear. CARDIOVASCULAR: Shows a regular rate and rhythm. I did not hear a murmur. ABDOMEN: Soft and nontender, without hepatosplenomegaly. EXTREMITIES: No cyanosis, clubbing, or edema. [facility] [address] [place] [address] HISTORY AND PHYSICAL Name: DONITA RICHTER Room #: 9-[facility] IN M.R.#: [id number] Admission: 10/13/17 Attend Phys: Ever Babin MD Discharge: 10/16/17 Date of : 36 Report #: [id number] NEUROLOGIC: Showed her to be unsteady in the sitting position. She was able to move all extremities and was able to talk to me and did not seem overly confused at this time. LABORATORY PARAMETERS: Include a white count of 11.1, hemoglobin of 10, platelet count 110,000. Potassium 5.3, creatinine 1.1, glucose 230. Images of the head were negative. CT of the abdomen and pelvis was not helpful. Chest x-ray was negative. ASSESSMENT AND PLAN: This is an 82-year-old female with really significant functional decline and there may be an element of orthostasis involved in this situation. She has comorbid conditions of diabetes, degenerative arthritis, and hypertension. She needs inpatient management due to safety issues and recent fall. There has been no evidence of serious injury from the fall, but we do not know exactly what the cause of this was, so she is going to be admitted and observed for 24-48 hours and adjust her meds, check orthostatic blood pressures, and hopefully she can improve. <ELECTRONICALLY SIGNED> By: Jasen Berman MD 11/21/17 1244 1017 1048 Jasen Berman MD /[facility]
--- NOTE | ~2017-10-13 | EKG ---
[address] [place] [address] ELECTROCARDIOGRAM REPORT Name: DONITA RICHTER Room #: 439-P ADM IN M.R.#: [id number] Admission: 10/13/17 Attend Phys: Ever Babin MD Discharge: Date of : 36 Report #: [id number] THIS REPORT FOR: //name// [facility] ED Test Date: 2017-10-13 Test Time: 11:02:30 Pat Name: DONITA RICHTER Department: Room: 439 Gender: F Septic Cleaner: GATITO : 1935 Requested By: Willard Toth Order Number: [id number] MD: Tru Yoon Measurements Intervals [place] Rate: 69 P: 75 AR: 158 QRS: 25 QRSD: 80 T: 33 QT: 382 QTc: 410 Interpretive Statements Sinus rhythm Minimal ST elevation, inferior leads Compared to ECG 09/15/2017 19:25:57 ST (T wave) deviation now present Atrial premature complex(es) no longer present Electronically Signed On 10-15-2017 15:09:20 SOFTWARE QA SYSTEM SPECIALIST by Tru Yoon [email or web address] <ELECTRONICALLY SIGNED> By: Tru Yoon MD, [facility] 10/15/17 1509 1102 1102 Tru Yoon MD, [facility] /EPI
[~2017-10-13 10:56] MED LIST changes: +ANTIFUNGAL30 GM; +CEFDINIR300 MG PO; +DELSYM30 MG/5 M1 PO; +NITROFURANTOIN100 MG PO; +OSELB75 PO; +PREDNISONE 10 M10 MG PO
[2017-10-13 10:57] VITALS: BP 128/40
[2017-10-13 11:46] LABS: URINE BILIRUBIN NEGATIVE (Negative); URINE BLOOD NEGATIVE (Negative); URINE CLARITY CLEAR; URINE COLOR YELLOW; URINE GLUCOSE-RANDOM* 1+ (Negative); URINE KETONES NEGATIVE (Negative); URINE LEUKOCYTES-REFLEX NEGATIVE (Negative); URINE NITRITE-REFLEX NEGATIVE (Negative); URINE PROTEIN (DIPSTICK) NEGATIVE (Negative); URINE UROBILINOGEN 0.2 E.U./dl (0.2-1.0)
[2017-10-13 12:48] LABS: BASOPHILS 0.4 % (0.0-2.0); EOSINOPHILS 0.6 % (0.0-3.0); HEMATOCRIT 34.7 % (37.0-47.0); HEMOGLOBIN 11.3 gm/dL (12.0-15.0); LYMPHOCYTES 16.4 % (24.0-44.0); MCH 28.9 pg (26.0-34.0); MCHC 32.7 g/dL (28.0-37.0); MCV 88.4 fL (80.0-100.0); MONOCYTES 8.1 % (1.0-8.0); PLATELET COUNT 129 thou/uL (150-400); POLYS 74.5 % (36.0-66.0); RBC 3.92 mil/uL (4.20-5.00); RDW 16.8 % (10.5-14.5); WBC 14.8 thou/uL (4.0-11.0)
[2017-10-13 12:55] LABS: ANION GAP 4 mmol/L (7-16); BUN 38 mg/dL (7-18); CHLORIDE 101 mmol/L (98-107); CO2 27 mmol/L (21-32); CREATININE 1.3 mg/dL (0.6-1.0); GLUCOSE 181 mg/dL (74-106); SODIUM 132 mmol/L (136-145)
[2017-10-13 13:04] LABS: TROPONIN-I < 0.04 ng/mL (<0.06)
[2017-10-13] MEDS ORDERED: KLOR-CON 1010 MEQ PO (14:20)
[2017-10-13] MEDS ORDERED: LASIX 20 MG TAB20 MG PO (14:22)
[2017-10-13] MEDS ORDERED: BENADRYL25 MG PO (14:23)
[2017-10-13] MEDS ORDERED: MILK OF MA2400 MG/10 PO (14:31)
[2017-10-13] MEDS ORDERED: MUCINEX600 MG PO (14:46)
[2017-10-13 16:25] VITALS: BP 147/51
[2017-10-13 18:10] VITALS: BP 133/46
[2017-10-13 20:43] VITALS: BP 149/41
[2017-10-14 02:46] VITALS: BP 145/48
[2017-10-14 03:52] LABS: ABSOLUTE NEUTROPHILS 7.6 thou/uL (1.4-8.2); BASOPHILS 0.3 % (0.0-2.0); EOSINOPHILS 1.8 % (0.0-3.0); HEMATOCRIT 30.3 % (37.0-47.0); LYMPHOCYTES 19.1 % (24.0-44.0); MCH 29.1 pg (26.0-34.0); MCHC 32.9 g/dL (28.0-37.0); MCV 88.3 fL (80.0-100.0); MONOCYTES 10.3 % (1.0-8.0); PLATELET COUNT 110 thou/uL (150-400); POLYS 68.5 % (36.0-66.0); RBC 3.43 mil/uL (4.20-5.00); RDW 16.5 % (10.5-14.5); WBC 11.1 thou/uL (4.0-11.0)
[2017-10-14 03:57] LABS: CALCIUM 8.9 mg/dL (8.5-10.1); CREATININE 1.1 mg/dL (0.6-1.0)
[2017-10-14 04:01] LABS: POTASSIUM 4.9 mmol/L (3.5-5.1)
[2017-10-14 07:55] VITALS: BP 145/46
[2017-10-14 12:00] VITALS: BP 146/81
[2017-10-14 12:01] VITALS: BP 126/72
[2017-10-14 12:02] VITALS: BP 105/71
[2017-10-14 16:12] VITALS: BP 168/48
[2017-10-15 04:18] VITALS: BP 142/93
[2017-10-15 08:00] VITALS: BP 172/53
[2017-10-15 16:00] VITALS: BP 152/63
[2017-10-15 20:52] VITALS: BP 154/34
[2017-10-15 23:54] VITALS: BP 155/49
[2017-10-16 05:45] VITALS: BP 163/55
[2017-10-16 07:35] VITALS: BP 150/59
[2017-10-16 08:14] VITALS: BP 163/55
[2017-10-16] MEDS ORDERED: LISINOPRIL5 MG PO (12:34)
[2017-10-16] MEDS ORDERED: NEURONTIN 300300 M1 PO (12:35)
[2018-04-16] MEDS ORDERED: METOPROLOL SUCC50 MG PO (12:17)
[2018-04-16] MEDS ORDERED: AMLODIPINE BESY10 MG PO (12:17)
[2018-04-16] MEDS ORDERED: DELSYM COU30 MG/5 M1 PO (12:18)
[2018-04-16] MEDS ORDERED: COZAAR100 MG PO (12:18)
[2018-04-16] MEDS ORDERED: MUCINEX600 MG PO (12:18)
== END 2017-10-16 15:50 | DRG 312 ==
LOC: ER 10:56 → 4S 14:36 → EROBS 14:36 → 4S 16:24 → ENTRNSPT 10-16 15:34 → EDTRNSPTSTS 10-16 15:41 → 4S 10-16 15:50
PROVIDERS: Physician Assistant
DX: I95.1 Orthostatic hypotension (principal); G93.41 Metabolic encephalopathy; I10 Essential (primary) hypertension; E78.5 Hyperlipidemia, unspecified; E03.9 Hypothyroidism, unspecified; E11.9 Type 2 diabetes mellitus without complications; E87.6 Hypokalemia; K21.9 Gastro-esophageal reflux disease without esophagitis; F41.9 Anxiety disorder, unspecified; J44.9 Chronic obstructive pulmonary disease, unspecified; F32.9 Major depressive disorder, single episode, unspecified; G89.29 Other chronic pain; Z88.6 Allergy status to analgesic agent; Z88.1 Allergy status to other antibiotic agents; Z88.0 Allergy status to penicillin; Z88.2 Allergy status to sulfonamides; Z79.82 Long term (current) use of aspirin; Z79.899 Other long term (current) drug therapy; Z90.49 Acquired absence of other specified parts of digestive tract; Z90.710 Acquired absence of both cervix and uterus; W18.39XA Other fall on same level, initial encounter; Y93.89 Activity, other specified; Y92.89 Other specified places as the place of occurrence of the external cause; Y99.8 Other external cause status
CPT/HCPCS: 10100

== ENCOUNTER 2018-02-01 11:39 | Emergency (ER) | payer OTHER ==
[~2018-02-01] VITALS: Ht 147.3 cm; Wt 70.3 kg
--- NOTE | ~2018-02-01 | EKG ---
[place] [address] [facility] [address] [place] [address] ELECTROCARDIOGRAM REPORT Name: DONITA RICHTER Room #: [facility]#: [id number] Admission: 02/01/18 Attend Phys: Discharge: 02/01/18 Date of : 36 Report #: [id number] THIS REPORT FOR: //name// [facility] ED Test Date: 2018-02-01 Test Time: 11:49:26 Pat Name: DONITA RICHTER Department: Room: Gender: F Synthetic Chemist: KF : 1935 Requested By: Gabbie Galvan Order Number: [id number] MD: Tru Yoon Measurements Intervals [place] Rate: 70 P: 79 PA: 147 QRS: 48 QRSD: 83 T: 41 QT: 398 QTc: 430 Interpretive Statements Sinus rhythm No significant abnormality Compared to ECG 10/13/2017 11:02:30 ST (T wave) deviation no longer present Electronically Signed On 02-02-2018 9:11:10 CDT by Tru Yoon [email or web address] <ELECTRONICALLY SIGNED> By: Tru Yoon MD, [facility] 02/02/18 0911 1149 1149 Tru Yoon MD, FAC /EPI
[~2018-02-01 11:39] MED LIST changes: +BENADRYL25 MG PO; +LISINOPRIL5 MG PO; +MUCINEX600 MG PO; +NEURONTIN 300300 M1 PO
[2018-02-01 12:39] LABS: HEMATOCRIT 29.5 % (37.0-47.0); HEMOGLOBIN 9.6 gm/dL (12.0-15.0); MCH 28.2 pg (26.0-34.0); MCHC 32.6 g/dL (28.0-37.0); MCV 86.4 fL (80.0-100.0); PLATELET COUNT 296 thou/uL (150-400); RBC 3.41 mil/uL (4.20-5.00); RDW 15.8 % (10.5-14.5); WBC 5.8 thou/uL (4.0-11.0)
[2018-02-01 12:50] LABS: ANION GAP 7 mmol/L (7-16); BUN 20 mg/dL (7-18); CALCIUM 10.2 mg/dL (8.5-10.1); CHLORIDE 103 mmol/L (98-107); CO2 24 mmol/L (21-32); CREATININE 1.1 mg/dL (0.6-1.0); GLUCOSE 105 mg/dL (74-106); SODIUM 134 mmol/L (136-145)
[2018-02-01 12:59] LABS: TROPONIN-I < 0.04 ng/mL (<0.06)
[2018-02-01 13:05] LABS: ABSOLUTE NEUTROPHILS 3.7 thou/uL (1.4-8.2); ANISOCYTOSIS SLIGHT
== END 2018-02-01 15:20 | disposition home or self-care (01) ==
LOC: ER 11:39
PROVIDERS: Emergency Medicine
DX: M54.6 Pain in thoracic spine (principal); M25.511 Pain in right shoulder; I10 Essential (primary) hypertension; E78.5 Hyperlipidemia, unspecified; E03.9 Hypothyroidism, unspecified; E11.9 Type 2 diabetes mellitus without complications; F32.9 Major depressive disorder, single episode, unspecified; F41.9 Anxiety disorder, unspecified; G89.29 Other chronic pain; Z88.0 Allergy status to penicillin; Z88.2 Allergy status to sulfonamides; Z87.891 Personal history of nicotine dependence

== ENCOUNTER 2018-03-30 23:21 | Emergency (ER) | payer OTHER ==
[~2018-03-30] VITALS: Ht 147.3 cm; Wt 71.7 kg
[2018-03-31 01:00] LABS: URINE BILIRUBIN NEGATIVE (Negative); URINE BLOOD TRACE (Negative); URINE CLARITY CLEAR; URINE COLOR YELLOW; URINE GLUCOSE-RANDOM* NEGATIVE (Negative); URINE KETONES NEGATIVE (Negative); URINE NITRITE-REFLEX NEGATIVE (Negative); URINE PROTEIN (DIPSTICK) NEGATIVE (Negative); URINE SPECIFIC GRAVITY <= 1.005 (1.005-1.035); URINE UROBILINOGEN 0.2 E.U./dl (0.2-1.0)
[2018-03-31 01:03] LABS: URINE LEUKOCYTES-REFLEX 1+ (Negative)
[2018-03-31 01:09] LABS: ABSOLUTE NEUTROPHILS 3.7 thou/uL (1.4-8.2); BASOPHILS 1.3 % (0.0-2.0); EOSINOPHILS 4.6 % (0.0-3.0); HEMATOCRIT 33.7 % (37.0-47.0); HEMOGLOBIN 11.1 gm/dL (12.0-15.0); LYMPHOCYTES 31.7 % (24.0-44.0); MCH 27.7 pg (26.0-34.0); MCV 84.1 fL (80.0-100.0); MONOCYTES 10.3 % (1.0-8.0); PLATELET COUNT 217 thou/uL (150-400); POLYS 52.1 % (36.0-66.0); RBC 4.01 mil/uL (4.20-5.00); RDW 17.5 % (10.5-14.5); WBC 7.1 thou/uL (4.0-11.0)
[2018-03-31 01:10] LABS: SQUAMOUS 0-3 Few /LPF (0-3)
[2018-03-31 01:11] LABS: BACTERIA-REFLEX 1-9 Few /HPF (None Seen); CASTS None Seen /LPF (None Seen); CRYSTALS None Seen /LPF (None Seen); URINE RBC 0-2 Rare /HPF (0-2); URINE WBC-REFLEX 0-5 Rare /HPF (0-5)
[2018-03-31 01:16] LABS: ANION GAP 7 mmol/L (7-16); BUN 27 mg/dL (7-18); CALCIUM 8.9 mg/dL (8.5-10.1); CHLORIDE 103 mmol/L (98-107); CO2 26 mmol/L (21-32); GLUCOSE 96 mg/dL (74-106); POTASSIUM 4.3 mmol/L (3.5-5.1); SODIUM 136 mmol/L (136-145)
[2018-03-31 01:22] LABS: ALBUMIN 3.5 g/dL (3.4-5.0); DIRECT BILIRUBIN < 0.1 mg/dL (<0.1-0.3); LIPASE 143 U/L (73-393); SGOT 9 U/L (15-37); SGPT 15 U/L (30-65); TOTAL BILIRUBIN 0.2 mg/dL (<0.1-1.0); TOTAL PROTEIN 7.6 g/dL (6.4-8.2)
== END 2018-03-31 04:13 | disposition home or self-care (01) ==
LOC: ER 23:21
PROVIDERS: Emergency Medicine
DX: K80.20 Calculus of gallbladder without cholecystitis without obstruction (principal); I10 Essential (primary) hypertension; E78.5 Hyperlipidemia, unspecified; E03.9 Hypothyroidism, unspecified; E11.9 Type 2 diabetes mellitus without complications; K21.9 Gastro-esophageal reflux disease without esophagitis; F32.9 Major depressive disorder, single episode, unspecified; F41.9 Anxiety disorder, unspecified; G89.29 Other chronic pain; Z87.891 Personal history of nicotine dependence; Z88.5 Allergy status to narcotic agent; Z88.4 Allergy status to anesthetic agent; Z88.1 Allergy status to other antibiotic agents; Z88.0 Allergy status to penicillin; Z88.2 Allergy status to sulfonamides; Z88.8 Allergy status to other drugs, medicaments and biological substances

== ENCOUNTER 2018-10-20 12:26 | Inpatient (IN) | payer OTHER ==
[~2018-10-20] VITALS: Ht 162.6 cm; Wt 77.4 kg
--- NOTE | ~2018-10-20 | H ---
[facility] [address] [place] [address] HISTORY AND PHYSICAL Name: RICHTERDONITA Cooney Room #: 350-P ADM IN M.R.#: [id number] Admission: 10/20/18 ������������������ Attend Phys: Tara Galdamez Discharge: ������������������ Date of : 36 Report #: [id number] THIS REPORT FOR: //name// CC: Jasen Berman Stanmildred Asad DATE OF SERVICE: 10/20/2018 HISTORY OF PRESENT ILLNESS: This is an 82-year-old female with diarrhea for a week and progressive right-sided abdominal pain. This patient is well-known to our service back at the [facility] and back in August and September of this year, was admitted for generalized weakness and falls, but did improve and she was doing well until last week when she started to have more episodes of diarrhea. She was treated at the senior living with IV fluids with the thought that this was a viral gastroenteritis but it continued the weekend with more abdominal pain and subsequently admitted and the findings of right-sided ascending colitis. PAST MEDICAL HISTORY: Noteworthy for hypothyroidism. She has diabetes, hyperlipidemia, and chronic anxiety. MEDICATIONS: List includes metoprolol, amlodipine, losartan, dextromethorphan, guaifenesin, gabapentin, glimepiride, albuterol, Lamictal, lovastatin, alprazolam, budesonide, escitalopram, levothyroxine, metformin, hydrocodone, and aspirin. ALLERGIES: Multiple allergies to include CODEINE, FENTANYL, AVELOX, PENICILLIN, SULFA, AND CYCLOBENZAPRINE. FAMILY HISTORY: Noncontributory. SOCIAL HISTORY: She lives at [facility]. Does not smoke or drink, is a DNR at this point. REVIEW OF SYSTEMS: Mainly related to right-sided abdominal pain. PHYSICAL EXAMINATION: GENERAL: Shows her to be in no distress. She is awake, alert and oriented. HEENT: Otherwise, negative. NECK: Supple, without thyromegaly or adenopathy. CHEST: Clear. CARDIOVASCULAR: Showed regular rate and rhythm without definite murmur. ABDOMEN: Mildly distended. There was some right-sided abdominal tenderness without rebound. There was no hepatosplenomegaly. EXTREMITIES: Showed some lower extremity edema with some very mild bilateral redness and warmth consistent with venous insufficiency. [address] [address] HISTORY AND PHYSICAL Name: DONITA RICHTER Room #: 350-P ADM IN .R.#: [id number] Admission: 10/20/18 ������������������ Attend Phys: Tara Galdamez Discharge: ������������������ Date of : 36 Report #: [id number] NEUROLOGIC: Negative. LABORATORY PARAMETERS: Showed a white count of 20,000. Her creatinine was 1.2. Lactate was negative. ASSESSMENT AND PLAN: 1. After review of the CT, we find evidence of acute ascending colitis that probably is inflammatory in nature. The possibility that this could be ischemic, but there is significant evidence leading up to this diarrhea illness. Whether there is malignancy, it is not clear at this point, so we will await cultures and start IV metronidazole and hopefully that is all will need. 2. Diabetes. 3. Hypothyroidism. 4. Chronic obstructive pulmonary disease. ��������������������������������������������� ���������������������������������������� By: ��������������������������������������������� 1059 1135 Jasen Berman MD /PMT
[~2018-10-20 12:26] MED LIST changes: +AMLODIPINE BESY10 MG PO; +COZAAR100 MG PO; +METOPROLOL SUCC50 MG PO
[2018-10-20 12:28] VITALS: BP 166/47
[2018-10-20 13:12] LABS: BE(vivo) -3.4 mmol/L (-2 to +3); HCO3 20.3 mmol/L (22.0-26.0); PCO2 31.9 mmHg (35.0-45.0); PO2 60.3 mmHg (80.0-100.0); pH 7.421 (7.360-7.450); sO2 91.9 % (92.0-98.0)
[2018-10-20 13:54] LABS: URINE BILIRUBIN NEGATIVE (Negative); URINE BLOOD 1+ (Negative); URINE CLARITY CLOUDY; URINE COLOR YELLOW; URINE GLUCOSE-RANDOM* NEGATIVE (Negative); URINE KETONES NEGATIVE (Negative); URINE LEUKOCYTES-REFLEX TRACE (Negative); URINE NITRITE-REFLEX NEGATIVE (Negative); URINE PROTEIN (DIPSTICK) 1+ (Negative); URINE UROBILINOGEN 0.2 E.U./dl (0.2-1.0)
[2018-10-20 14:00] LABS: AMORPHOUS URATES Moderate /LPF (None Seen); CASTS None Seen /LPF (None Seen); SQUAMOUS 0-3 Few /LPF (0-3); URINE RBC 0-2 Rare /HPF (0-2); URINE WBC-REFLEX 0-5 Rare /HPF (0-5)
[2018-10-20 14:57] LABS: HEMATOCRIT 29.8 % (37.0-47.0); HEMOGLOBIN 9.6 gm/dL (12.0-15.0); MCH 26.6 pg (26.0-34.0); MCHC 32.3 g/dL (28.0-37.0); MCV 82.3 fL (80.0-100.0); PLATELET COUNT 305 thou/uL (150-400); RBC 3.62 mil/uL (4.20-5.00); RDW 17.3 % (10.5-14.5); WBC 21.1 thou/uL (4.0-11.0)
[2018-10-20 15:08] LABS: CALCIUM 9.8 mg/dL (8.5-10.1); CREATININE 1.2 mg/dL (0.6-1.0); POTASSIUM 3.5 mmol/L (3.5-5.1)
[2018-10-20 15:34] LABS: ABSOLUTE NEUTROPHILS 18.1 thou/uL (1.4-8.2)
[2018-10-20 15:35] LABS: ANISOCYTOSIS 1+
[2018-10-21] VITALS (7 sets, daily range): BP systolic 131–147; BP diastolic 47–58
--- NOTE | 2018-10-21 05:02 | NUR ---
Assumed came up from ER approx 0030. Alert and oriented to self and place. Pt able to provide limited admission hx. [facility] sn[facility] called and obtained the rest of the admission information needed. IVF and antibiotics administered. Stool sample sent to lab to test for c-diff. Bruise noted on pt forehead, likely from a recent fall. Abdomen round and distended. Fall precautions in place. Will continue to monitor and assist with needs.
--- NOTE | 2018-10-21 10:56 | EKG ---
[address] [address] ELECTROCARDIOGRAM REPORT Name: DONITA RICHTER Room #: 350-P ADM IN M.R.#: [id number] ������������������ Admission: 10/20/18 ������������������ Attend Phys: Tara Galdamez Discharge: ������������������ Date of : 36 Report #: [id number] ����������������������������������������������������������������� [id number] THIS REPORT FOR: //name// [facility] ED Test Date: 2018-10-20 Test Time: 12:37:50 Pat Name: DONITA RICHTER Department: Room: 350 Gender: F Tricot Knitter: GALI : 1935 Requested By: Chandu Guadarrama Order Number: [id number] MD: Tru Yoon Measurements Intervals [place] Rate: 82 P: 88 FL: 183 QRS: 71 QRSD: 88 T: 55 QT: 375 QTc: 438 Interpretive Statements Sinus rhythm Nonspecific T abnormalities Baseline wander in lead(s) V1 Compared to ECG 04/05/2018 14:52:13 Atrial premature complex(es) no longer present Electronically Signed On 10-21-2018 10:56:49 HEAD WAITER/WAITRESS by Tru Yoon [email or web address] ��������������������������������������������� <ELECTRONICALLY SIGNED> ���������������������������������������� By: Tru Yoon MD, [facility] ��������������������������������������������� 10/21/18 1056 1237 1237 Tru Yoon MD, [facility] /EPI
--- NOTE | 2018-10-21 15:46 | NUR ---
CONT TO COMPLAIN OF ABDOMINAL PAIN AT THIS TIME. RESPIRATIONS ARE EVEN NON LABORED. PRN PAIN MEDS ADMINISTERED BUT RESIDENT STATES THEY ARE NOT EFFECTIVE. SHE IS ALERT ORIENTED X4. IV TO RIGHT AC NOTED TO BE LEAKING. PATIENT IS A DIFFICULT TO GET STICK. IV TEAM CALLED. WILL CONT WITH PLAN OF CARE.
--- NOTE | 2018-10-22 03:54 | NUR ---
PATIENT IS ALERT AND ORIENTED. PATIENT IS MAX 2 ASSIST TO BSC. PATIENT HAD ONE BM THIS SHIFT. CDIFF WAS NEG. PATIENT HAS WRIGHT IN PLACE FOR I&O. PATIENT DENIES PAIN. PATIENT IS ONE ROOM AIR. PATIENT CAN TURN SELF BUT OCCATIONAL REQUIRES ASSISTANCE. PATIENT HAS BEEN SLEEPING MOST OF THE SHIFT NOT WANTING TO BE DISTRUBED. PATIENT IS NSR ON TELE. PATIENT IS RESTING COMFORTABLEY IN BED. WCM. PATIENT IS PROGRESSING TO GOALS
[2018-10-22 04:40] VITALS: BP 122/61
[2018-10-22 06:26] LABS: ABSOLUTE NEUTROPHILS 14.5 thou/uL (1.4-8.2); BASOPHILS 0.4 % (0.0-2.0); EOSINOPHILS 0.5 % (0.0-3.0); HEMATOCRIT 23.9 % (37.0-47.0); LYMPHOCYTES 6.2 % (24.0-44.0); MCH 27.8 pg (26.0-34.0); MCHC 33.5 g/dL (28.0-37.0); MCV 82.8 fL (80.0-100.0); MONOCYTES 5.2 % (1.0-8.0); PLATELET COUNT 247 thou/uL (150-400); POLYS 87.7 % (36.0-66.0); RBC 2.88 mil/uL (4.20-5.00); RDW 17.7 % (10.5-14.5); WBC 16.5 thou/uL (4.0-11.0)
[2018-10-22 06:40] LABS: CALCIUM 8.6 mg/dL (8.5-10.1); CREATININE 1.1 mg/dL (0.6-1.0); POTASSIUM 3.1 mmol/L (3.5-5.1)
[2018-10-22 07:27] VITALS: BP 142/57
--- NOTE | 2018-10-22 15:44 | NUR ---
ASSESSMENT: CM REVIEWED CHART AND MET WITH PATIENT AT THE BEDSIDE. PT WAS ADMITTED FOR DIARRHEA/ABDOMINAL PAIN. STOOL CULTURE IS PENDING. PT IS A LTC RESIDENT FROM [facility] (3RD FLOOR). PT REPORTS SHE HAS BEEN USING A WHEELCHAIR AND WALKER AT TIMES. CM REACHED OUT TO [facility] [phone] AND ASKED FOR ADMISSIONS. CM SPOKE WITH COLIN CARDENAS WHO REQUEST CLINICAL BE FAXED TO THEIR FAX [phone]. CM FAXED CLINICAL. PATIENT PLANS TO RETURN TO [facility] ONCE MEDICALLY STABLE. PATIENT MAY NEED A COLONOSCOPY. CM WILL CONTINUE TO FOLLOW TO ASSIST NEEDED.
[2018-10-22 16:00] VITALS: BP 134/62
--- NOTE | 2018-10-22 16:42 | NUR ---
ASSUMED PATIENT CARE AT 0700. A/O X4. GENERLIZED WEAKNESS. MAX ASSISTED TO BSC. PATIENT HAD TOW LOOSE STOOL. C/O ABD PAIN. VSS. SLOWLY TOWARDS POC GOALS.
[2018-10-22 19:00] VITALS: BP 151/66
[2018-10-22 23:58] VITALS: BP 145/66
[2018-10-23 04:27] VITALS: BP 131/65
--- NOTE | 2018-10-23 05:23 | NUR ---
PATIENTS CARES WERE ASSUMED AT SHIFT CHANGE. PATIENT WAS ASSESSED AND MEDS WERE PASSED. PATIENT REMAINS ON BEDREST THIS SHIFT DUE TO HER INABILITY TO HOLD HER OWN WEIGHT, THE BED KAM WAS USED. HOURLY ROUNDING WAS DONE. THE BED IS IN A LOW AND LOCKED POSITION
[2018-10-23 05:24] LABS: HEMOGLOBIN 8.6 gm/dL (12.0-15.0); MCH 27.3 pg (26.0-34.0); MCV 82.8 fL (80.0-100.0); RBC 3.15 mil/uL (4.20-5.00); RDW 17.8 % (10.5-14.5); WBC 15.8 thou/uL (4.0-11.0)
[2018-10-23 05:55] LABS: POTASSIUM 3.8 mmol/L (3.5-5.1)
[2018-10-23 07:33] VITALS: BP 153/74
--- NOTE | 2018-10-23 12:42 | NUR ---
on-going assessment: CM REVIEWED CHART. PATIENT IS SLOWLY PROGRESSING TOWARDS DISCHARGE GOALS. PT REMAINS ON CLEARS AND ANBX. PT WILL RETURN TO [facility] ONCE MEDICALLY STABLE.
[2018-10-23 16:29] VITALS: BP 168/59
--- NOTE | 2018-10-23 18:06 | NUR ---
ASSUMED PATIENT CARE AT 0700. A/0 X4. ANXOIUS. SOB WITH EXERTION. C/O ABD PAIN. VOID AFTER WRIGHT DC'D. PATIENT REFUSED Q2H TURN DUE TO NO ABLE TO BREATHING WELL. ONE LOOSE STOOL. SLOWLY TOWARDS POC GOALS.
[2018-10-23 19:30] VITALS: BP 140/69
[2018-10-24 04:10] VITALS: BP 179/62
[2018-10-24 05:19] LABS: HEMATOCRIT 27.4 % (37.0-47.0); MCH 27.2 pg (26.0-34.0); MCV 82.5 fL (80.0-100.0); RBC 3.32 mil/uL (4.20-5.00); RDW 17.7 % (10.5-14.5); WBC 11.6 thou/uL (4.0-11.0)
[2018-10-24 05:27] LABS: CALCIUM 8.9 mg/dL (8.5-10.1); CREATININE 0.8 mg/dL (0.6-1.0); POTASSIUM 3.5 mmol/L (3.5-5.1)
--- NOTE | 2018-10-24 06:18 | NUR ---
PT MAKING SLOW PROGRESS TOWARDS GOALS. ON O2 AT 2L OVERNIGHT. LUNGS WHZ BL UPPER LOBES AND COARSE BL BASES. REPORTING SOA AFTER MULTIPLE COUGHS. ENOURAGED TO TAKE SLOW DEEP BREATH THROUGH THE NOSE WHEN THAT OCCURS. THIS AM, APPROACHED PT TO GIVE SYNTHROID AND PT SUDDENLY STATED "GO AWAY." WHEN ASKED IF SHE RECOGNIZED THIS TEST ENGINE EVALUATOR SHE REPLIED WITH "YEA, I KNOW WHO YOU ARE." PT REFUSED THE SYNTHROID, "I'M NOT TAKING THAT NOW." WHEN ASKED IF ANYTHING BAD HAD HAPPENED PT REPLIED WITH "NO." WHEN ASKED IF SHE WAS UPSET DUE TO FREQUENT INTERRUPTIONS IN HER SLEEP SHE REPLIED, "YES." WILL ASK DAY RN TO GIVE SYNTHROID AND NOT WAKE PT DURING SHIFT REPORT.
[2018-10-24 07:47] VITALS: BP 159/99
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
[2018-10-24 15:00] VITALS: BP 158/72
--- NOTE | 2018-10-24 16:58 | NUR ---
Assumed are of pt at 0700. pt aox4 but showing signs of paranoia this morning, making vague statements suggesting people are playing games on her, but unable to describe any specific persons or events that happened overnight that disturbed her. at this time breathing moderately labored, coarse/wheezy to auscultation, appearing very anxious. physician notified - xanax restarted, chest xray ordered showing small left effusion. one time lasix given with large amt of output. patient now much more at ease. up to chair. breathing improved. largely incontinent w/ female ext cath in place. calls out appropriately. sinus on telemetry. pt progressing toward poc goals.
[2018-10-24 19:25] VITALS: BP 156/65
--- NOTE | 2018-10-25 00:58 | NUR ---
ASSUMED CARE OF PT AT 1900. A&Ox4, COOPERATIVE. A FEW ODD STATEMENTS ABOUT HOSPITAL STAFF BUT RESPONDING WELL TO INTERACTIONS W/ CURRENT TECH AND RN. VS STABLE. SR ON TELE. NO RESP DISTRESS, COMPLIANT W/ BREATHING TXs. REQUESTED BEDPAN 1X BUT UNABLE TO VOID. CURRENTLY RESTING. PROGRESSING TOWARDS POC GOALS.
[2018-10-25 05:10] VITALS: BP 154/79
[2018-10-25 05:31] LABS: HEMATOCRIT 29.9 % (37.0-47.0); HEMOGLOBIN 9.8 gm/dL (12.0-15.0); MCHC 32.7 g/dL (28.0-37.0); MCV 82.8 fL (80.0-100.0); RBC 3.62 mil/uL (4.20-5.00); RDW 17.7 % (10.5-14.5); WBC 11.8 thou/uL (4.0-11.0)
[2018-10-25 05:50] LABS: CALCIUM 8.9 mg/dL (8.5-10.1); CREATININE 0.7 mg/dL (0.6-1.0)
[2018-10-25 07:46] VITALS: BP 170/67
--- NOTE | 2018-10-25 12:41 | NUR ---
ON-GOING ASSESSMENT: CM REVIEWED CHART. PT IS PROGRESSING TOWARDS DISCHARGE GOALS. PT IS CONTINUING HER ANBX AND SLOLY IMPROVING. CM NOTIFIED LSOP THAT PATIENT MAY BE READY FOR DISCHARGE IN THE NEXT 1-2 DAYS. CM WILL CONTINUE TO FOLLOW TO ASSIST NEEDED.
[2018-10-25 15:52] VITALS: BP 151/64
--- NOTE | 2018-10-25 15:58 | NUR ---
Assumed care of Pt at 0700. Pt AOX4 in no acute distress. Breathing improved today, remains on supplemental oxygen. pain well controlled with current regimen. hypertensive this AM - physician notified - med regimen adjusted - bp improved. up w/ 1 assist to BSC - bm today. up to chair for most of day. sinus on telemetry. no other remarkable changes to report. anticipate d/c 1-2 days back to [place]. pt progressing toward poc goals.
[2018-10-25 20:20] VITALS: BP 148/70
--- NOTE | 2018-10-26 05:01 | NUR ---
ASSUMED PT CARE AROUND 1900. A&OX4, FORGETFUL. DENIES ANY PAIN. UP TO BSC. HAD ONE BOWEL MOVEMENT THIS SHIFT. PT SLEPT MOST OF THE NIGHT. RESP EVEN AND UNLABORED. VSS. NO MAJOR COMPLAINTS THIS SHIFT. PROGRESSING TOWARD POC GOALS. WILL CONTINUE TO MONITOR FURTHER.
[2018-10-26 05:20] VITALS: BP 138/68
[2018-10-26 05:25] VITALS: BP 138/68
[2018-10-26 05:49] LABS: HEMATOCRIT 30.6 % (37.0-47.0); MCH 26.8 pg (26.0-34.0); MCHC 32.7 g/dL (28.0-37.0); RBC 3.73 mil/uL (4.20-5.00); RDW 17.5 % (10.5-14.5); WBC 11.6 thou/uL (4.0-11.0)
[2018-10-26 06:02] LABS: CALCIUM 8.9 mg/dL (8.5-10.1); CREATININE 0.7 mg/dL (0.6-1.0); POTASSIUM 3.5 mmol/L (3.5-5.1)
[2018-10-26 06:22] LABS: % SATURATION 28 % (20-39); IRON 50 ug/dL (50-170); TIBC 176 ug/dL (250-450)
[2018-10-26 06:46] LABS: FOLIC ACID 14.8 ng/mL (8.6-58.9); TSH 2.983 uIU/mL (0.358-3.740)
[2018-10-26 07:42] VITALS: BP 173/59
[2018-10-26 08:10] VITALS: BP 173/59
[2018-10-26] MEDS ORDERED: METRONIDAZOLE500 M4 PO (11:03)
--- NOTE | 2018-10-26 12:44 | NUR ---
ON-GOING ASSESSMENT: CM REVIEWED CHART AND MET WITH PATIENT AT THE BEDSIDE. PT HAS ORDERS TO DISCHARGE BACK TO [facility] TODAY. CM ORDERED CHART COPY. CM SPOKE WITH BEDSIDE RN TO GIVE HER THE NUMBER FOR REPORT [phone] AND ASK FOR THE THIRD FLOOR NURSE CHRISTOPHER. CM FAXED D/C ORDERS AND CONFIRMED RECEIPT. SHEILA SPOKE WITH PATIENTS DAUGHTER FREDO WHO IS PRESENT AND SHE IS UNABLE TO PROVIDE TRANSPORTATION FOR PATIENT TODAY. CM REACHED OUT TO [facility] WHO REQUEST [facility] TRANSPORTATION. CM CONTACTED [facility] AND THEY ARE PICKING PATIENT UP AT 2:00PM. CM NOTIFIED BEDSIDE RN AND PATIENT. PT REPORTS NO FURTHER NEEDS FROM CM AT THIS TIME.
--- NOTE | 2018-10-26 15:26 | NUR ---
Assumed care of patient at 0700. Vitals have been stable. Patient is alert and oriented x4, pleasant. Denies pain, SOB or nausea / vomiting. Patient feels much improved since admission. Still weak, but weakness has also improved. Up with SBA, GB and walker. Sat in chair this afternoon. One loose BM today. Is ready to discharge home. Discharge orders received. Report called to Jaquan at [facility]. IV and telemetry discontinued. Belongings gathered. Patient transported back to facility via wheelchair.
--- NOTE | 2018-10-31 12:37 | D ---
[facility] [address] [place] [address] DISCHARGE SUMMARY Name: DONITA RICHTER Room #: 350-P [facility] IN M.R.#: [id number] Admission: 10/20/18 ������������������ Attend Phys: Tara Galdamez Discharge: 10/26/18 ������������������ Date of : 36 Report #: [id number] THIS REPORT FOR: //name// CC: Jasen Anne Asad DATE OF SERVICE: 10/26/2018 FINAL DIAGNOSES: 1. Colitis. 2. Asthma exacerbation. 3. Hypertension. HOSPITAL COURSE: The patient was admitted with abdominal pain and diarrhea. She was treated empirically for infectious colitis. Stool studies were negative for C. diff colitis and negative for bacterial culture. She was treated empirically and conservatively with IV antibiotics including Cipro and Flagyl. She had some pulmonary complications and IV diuretics were ordered along with pulmonary treatments for her underlying asthma. Home medications were continued. She had no other interval complication. With conservative treatment, her symptoms improved significantly. Her abdominal pain resolved and she had no more crampy gases type pain, stools were still soft, but the liquid diarrhea had resolved and she was down to 1 or 2 soft bowel movements a day. She was tolerating a regular diet and her other home medications. Her white count was trending back towards normal. PHYSICAL EXAMINATION: GENERAL: On the day of discharge, she was awake and alert, sitting up in the edge of the bed. VITAL SIGNS: Stable. LUNGS: Clear. HEART: Regular. ABDOMEN: Soft, normoactive bowel sounds. No rebound or guarding. EXTREMITIES: Showed no edema. DISPOSITION: She will be discharged to [facility]. Resume all usual medications, diet and activity. She will add Flagyl 500 mg t.i.d. for a week. Follow up with Dr. Yin in 1-2 weeks. She can consider down the road to follow up with GI for outpatient endoscopy if she wishes further invasive workup. ��������������������������������������������� <ELECTRONICALLY SIGNED> ���������������������������������������� By: Ever Babin MD ��������������������������������������������� 10/31/18 1237 1233 22 Ever Babin MD /nt
== END 2018-10-26 15:10 | DRG 391 ==
LOC: ER 12:26 → 3W 18:22 → EROBS 18:22 → 3W 10-21
PROVIDERS: Emergency Medicine; Internal Medicine Gastroenterology; Internal Medicine Geriatric Medicine; ADMIT Internal Medicine
DX: K52.9 Noninfective gastroenteritis and colitis, unspecified (principal); G92 Toxic encephalopathy; J45.901 Unspecified asthma with (acute) exacerbation; I10 Essential (primary) hypertension; E78.5 Hyperlipidemia, unspecified; E11.9 Type 2 diabetes mellitus without complications; F32.9 Major depressive disorder, single episode, unspecified; E89.0 Postprocedural hypothyroidism; F41.9 Anxiety disorder, unspecified; G89.29 Other chronic pain; J44.9 Chronic obstructive pulmonary disease, unspecified; D72.829 Elevated white blood cell count, unspecified; I25.10 Atherosclerotic heart disease of native coronary artery without angina pectoris; K21.9 Gastro-esophageal reflux disease without esophagitis; Z87.81 Personal history of (healed) traumatic fracture; Z90.710 Acquired absence of both cervix and uterus; Z88.6 Allergy status to analgesic agent; Z88.0 Allergy status to penicillin; Z88.2 Allergy status to sulfonamides; Z88.8 Allergy status to other drugs, medicaments and biological substances; Z87.891 Personal history of nicotine dependence; Z79.82 Long term (current) use of aspirin; Z79.899 Other long term (current) drug therapy
CPT/HCPCS: 10879

== ENCOUNTER 2019-06-07 10:19 | Inpatient (IN) | payer OTHER ==
[~2019-06-07] VITALS: Ht 147.3 cm; Wt 75.8 kg
[2019-06-07 10:19] VITALS: BP 96/39
[~2019-06-07 10:19] MED LIST changes: +METRONIDAZOLE500 M4 PO
[2019-06-07 11:06] LABS: ABSOLUTE NEUTROPHILS 3.5 thou/uL (1.4-8.2); BASOPHILS 0.8 % (0.0-2.0); EOSINOPHILS 5.4 % (0.0-3.0); HEMATOCRIT 31.2 % (37.0-47.0); HEMOGLOBIN 10.1 gm/dL (12.0-15.0); LYMPHOCYTES 23.2 % (24.0-44.0); MCH 27.8 pg (26.0-34.0); MCHC 32.5 g/dL (28.0-37.0); MCV 85.7 fL (80.0-100.0); MONOCYTES 10.1 % (1.0-8.0); PLATELET COUNT 256 thou/uL (150-400); POLYS 60.5 % (36.0-66.0); RBC 3.63 mil/uL (4.20-5.00); WBC 5.7 thou/uL (4.0-11.0)
[2019-06-07 11:15] LABS: PROTIME 10.6 Seconds (9.3-11.4)
[2019-06-07 11:18] LABS: ANION GAP 12 mmol/L (7-16); BUN 60 mg/dL (7-18); CHLORIDE 102 mmol/L (98-107); CO2 19 mmol/L (21-32); CREATININE 2.1 mg/dL (0.6-1.0); GLUCOSE 117 mg/dL (74-106); POTASSIUM 5.9 mmol/L (3.5-5.1); SODIUM 133 mmol/L (136-145)
[2019-06-07 11:28] LABS: ALBUMIN 2.9 g/dL (3.4-5.0); MAGNESIUM 1.7 mg/dL (1.8-2.4); SGOT 120 U/L (15-37); SGPT 28 U/L (30-65); TOTAL BILIRUBIN 0.4 mg/dL (<0.1-1.0); TOTAL PROTEIN 7.5 g/dL (6.4-8.2); TROPONIN-I <0.06 ng/mL (<0.06)
[2019-06-07 12:57] LABS: URINE BILIRUBIN NEGATIVE (Negative); URINE BLOOD 2+ (Negative); URINE CLARITY CLEAR; URINE COLOR YELLOW; URINE GLUCOSE-RANDOM* NEGATIVE (Negative); URINE KETONES NEGATIVE (Negative); URINE PROTEIN (DIPSTICK) TRACE (Negative); URINE SPECIFIC GRAVITY <= 1.005 (1.005-1.035); URINE UROBILINOGEN 0.2 E.U./dl (0.2-1.0)
[2019-06-07 12:59] LABS: URINE LEUKOCYTES-REFLEX 3+ (Negative); URINE NITRITE-REFLEX POSITIVE (Negative)
[2019-06-07 13:11] LABS: SQUAMOUS 4-10 Moderate /LPF (0-3)
[2019-06-07 13:12] LABS: CASTS None Seen /LPF (None Seen); CRYSTALS None Seen /LPF (None Seen); URINE RBC 3-10 Few /HPF (0-2)
[2019-06-07 13:44] VITALS: BP 121/88
[2019-06-07 14:17] VITALS: BP 159/68
[2019-06-07] MEDS ORDERED: ASPIRIN EC325 MG PO (15:01)
[2019-06-07] MEDS ORDERED: LIPITOR 40 MG T40 M1 PO (15:02)
[2019-06-07] MEDS ORDERED: BUPROPION XL300 MG PO (15:04)
[2019-06-07] MEDS ORDERED: COZAAR 25 MG TA25 M1 PO (15:05)
[2019-06-07] MEDS ORDERED: 12-HOUR CO30 MG/5 ML PO (15:08)
[2019-06-07] MEDS ORDERED: BENTYL 10 MG CA10 MG PO (15:08)
[2019-06-07] MEDS ORDERED: DOXEPIN HC10 MG/1 ML PO (15:11)
[2019-06-07] MEDS ORDERED: FLOMAX0.4 MG PO (15:12)
[2019-06-07] MEDS ORDERED: LAMOTRIGINE250 MG PO (15:15)
[2019-06-07] MEDS ORDERED: LASIX 40 MG TAB40 MG PO (15:16)
[2019-06-07] MEDS ORDERED: LOPERAMIDE 2 MG2 MG PO (15:17)
[2019-06-07] MEDS ORDERED: MACROBID 100 M100 MG PO (15:18)
[2019-06-07] MEDS ORDERED: NORCO 7.5-3251 EACH PO (15:20)
[2019-06-07] MEDS ORDERED: KLOR-CON 10 ER10 MEQ PO (15:27)
[2019-06-07] MEDS ORDERED: PROTONIX40 M2 PO (15:28)
[2019-06-07] MEDS ORDERED: SYSTANE 0.3-0.1 EACH EA. EYE (15:29)
[2019-06-07] MEDS ORDERED: VENTOLIN HFA 1818 GM INH (15:30)
[2019-06-07] MEDS ORDERED: VOLTAREN GEL 1100 G1 TOP (15:32)
[2019-06-07] MEDS ORDERED: XOPENEX1.25 MG/3 INH (15:33)
[2019-06-07 16:00] VITALS: BP 144/41
[2019-06-07 19:13] VITALS: BP 143/25
--- NOTE | 2019-06-07 20:36 | NUR ---
PT ADMITTED FROM ER AND LIVES AT [facility]. SHE WAS DX WITH UTI YESTERDAY AND BECAME DROWSY THIS MORN AND FELL AT THE FACILTY..WHEN EMS ARRIVED HER SUGAR WAS 46..RECEIVED D50 EN ROUTE...FALL PREC IN PLACE...
[2019-06-08] VITALS (7 sets, daily range): BP systolic 115–169; BP diastolic 30–100
--- NOTE | 2019-06-08 04:00 | NUR ---
Patient making slow progress towards outcome goals. High fall risks. Fall precautions in place. IVfluids infusing. Mcbride catherter placed for urinary retention, large clear yellow output. Oriented to person but very forgetful. Was able to pull IV out and denies she did it, fidgety, was able to unhook mcbride from stat lock. Has removed monitor patches stating she thought they were batteries.
--- NOTE | 2019-06-08 04:56 | NUR ---
PAtient refusing scd hose, started on Lovenox SC.
[2019-06-08 05:30] LABS: HEMATOCRIT 26.5 % (37.0-47.0); HEMOGLOBIN 8.7 gm/dL (12.0-15.0); MCHC 32.8 g/dL (28.0-37.0); MCV 85.4 fL (80.0-100.0); RBC 3.1 mil/uL (4.20-5.00); RDW 16.6 % (10.5-14.5)
[2019-06-08 05:31] LABS: CALCIUM 8.5 mg/dL (8.5-10.1); CREATININE 1.4 mg/dL (0.6-1.0)
[2019-06-08 05:42] LABS: POTASSIUM 3.9 mmol/L (3.5-5.1)
--- NOTE | 2019-06-08 07:49 | H ---
[facility] [address] [place] [address] HISTORY AND PHYSICAL Name: DONITA RICHTER Room #: 351-P ADM IN M.R.#: [id number] Admission: 06/07/19 Attend Phys: Omid Kamara MD Discharge: Date of : 36 Report #: [id number] THIS REPORT FOR: //name// CC: Omid Kamara DATE OF SERVICE: 06/07/2019 CHIEF COMPLAINT: Drowsiness and abdominal pain. HISTORY OF PRESENT ILLNESS: The patient is an 84-year-old female from [facility], came to the Emergency Room with a 2-3 day history of weakness, drowsiness and abdominal pain. They also noted today she was hypoglycemic as she had not been eating well and EMS noted a blood sugar of 46 and D10 was started en route. She was drowsy, but responsive to questions. She said she felt some discomfort in the right side of her abdomen. There was a report of a urinalysis done at the facility and there was question of whether some antibiotics have been ordered for possible urinary tract infection. PAST MEDICAL HISTORY: Hypertension, dyslipidemia, hypothyroidism, diabetes type 2, esophageal reflux, depression, anxiety, chronic pain, hernia repair, COPD with several hospital stays for asthma exacerbation and pneumonia over the last year. PAST SURGICAL HISTORY: None. FAMILY HISTORY: Noncontributory. SOCIAL HISTORY: She has been living at [facility] for several years. No chronic alcohol or tobacco use. ALLERGIES: CODEINE, FENTANYL, AVELOX, PENICILLIN, SULFA, FLEXERIL. MEDICATIONS: Aspirin, Tylenol, Lortab, Glucophage, Synthroid, Lexapro, Tums, budesonide, Xanax, vitamin D, eye drops, lovastatin, Lamictal, albuterol, gabapentin, losartan, amlodipine and metoprolol. REVIEW OF SYSTEMS: She is drowsy, but arousable. Denies chest pain or shortness of breath. Complains of some right-sided abdominal discomfort. Otherwise, no headache, chest pain, productive cough, diarrhea, nausea, vomiting, dysuria or syncope. OBJECTIVE: VITAL SIGNS: Temperature 36.8, pulse 55, respirations 12, blood pressure 121/88, O2 sat 100% on 2 liters. GENERAL: She is drowsy, but arousable, in no distress. HEAD AND NECK: Unremarkable. [facility] [address] [place] [address] HISTORY AND PHYSICAL Name: DONITA RICHTER Room #: 351-P [facility] IN .R.#: [id number] Admission: 06/07/19 Attend Phys: Omid Kamara MD Discharge: Date of : 36 Report #: [id number] LUNGS: Clear. HEART: Regular. ABDOMEN: Soft, protuberant. Normal bowel sounds. No rebound or guarding. No palpable masses. EXTREMITIES: No cyanosis, clubbing or edema. NEUROLOGIC: She opens her eyes. Knows she is at [place]. Answers questions appropriately, moves all extremities. LABORATORY DATA: Urinalysis had protein, blood, nitrite, leukocyte, red cells, white cells, squamous cells, bacteria. White count is 5, potassium was 5.9, creatinine was 2.1, magnesium 1.7. Troponin negative. Albumin 2.9. Chest x-ray is negative. X-ray of the pelvis and hip showed no acute fracture. CT cervical spine showed no acute fracture. CT head, nothing acute. ASSESSMENT: 1. Acute cystitis. 2. Electrolyte disturbance. 3. Acute renal failure. 4. Hypertension. 5. Diabetes type 2. 6. Chronic obstructive pulmonary disease with asthma component. PLAN: She will be treated with empiric IV antibiotics pending cultures along with IV fluids and repeat lab. I have asked the nursing staff to check her for urinary retention and a CT of the abdomen has been obtained. We will hold home medicines for now until she is more awake and if her renal function stabilizes. This could be a prerenal effect from diuretic and potassium supplementation along with poor intake in the last day or two. She has outside DNR at [facility] which will be continued here. <ELECTRONICALLY SIGNED> By: Ever Babin MD 06/08/19 0749 1720 1849 Ever Babin MD /nt
--- NOTE | 2019-06-08 10:14 | EKG ---
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
--- NOTE | 2019-06-08 15:55 | NUR ---
ASSUMED CARE AROUND 0715. AXOX3. WRIGHT INTACT DRAINING LIGHT YELLOW URINE. HOME MEDS RESUMED PER . NO S/S ACUTE DISTRESS NOTED OR REPORTED AT THIS TIME. WILL CONT TO MONITOR FOR ANY CHANGES IN CONDITION.
[2019-06-09 03:33] VITALS: BP 174/66
[2019-06-09 05:17] LABS: CALCIUM 8.6 mg/dL (8.5-10.1); CREATININE 1.1 mg/dL (0.6-1.0); POTASSIUM 3.6 mmol/L (3.5-5.1)
[2019-06-09 05:39] LABS: HEMATOCRIT 28.7 % (37.0-47.0); HEMOGLOBIN 9.3 gm/dL (12.0-15.0); MCH 27.5 pg (26.0-34.0); MCHC 32.4 g/dL (28.0-37.0); MCV 84.8 fL (80.0-100.0); RBC 3.38 mil/uL (4.20-5.00); RDW 16.4 % (10.5-14.5); WBC 5.3 thou/uL (4.0-11.0)
--- NOTE | 2019-06-09 05:53 | NUR ---
FOLLOWING POC WITH IVF AND ORAL MEDICATIONS. PT HAS CHRONIC PAIN THAT ORAL PAIN MEDICATION MANAGES WELL. PT BREATH SOUNDS ARE DIMINISHED AND WITH CRACKLES. PT HAS A NON PRODUCTIVE COUGH THAT IS GETTING SOME FLEM UP WITH. NEW IV ACCESS GAINED IN RIGHT OUTER FOREARM, PREVIOUS SITE IN LEFT FOREARM BLEW. WRIGHT IN DUE TO RETENTION. VSS STABLE AND NO FEVER. HOURLY ROUNDING.
[2019-06-09 09:07] VITALS: BP 153/47
[2019-06-09 10:44] VITALS: BP 161/51
[2019-06-09 15:56] VITALS: BP 152/47
--- NOTE | 2019-06-09 19:00 | NUR ---
No changes of conditions. Pt remains stable in this shift. Up in chair x 6 hrs today, well anika activity. VSS. Report hand off to NOC nurse.
[2019-06-09 19:21] VITALS: BP 188/63
[2019-06-10 00:10] VITALS: BP 176/61
[2019-06-10 03:47] VITALS: BP 193/64
[2019-06-10 05:48] LABS: CALCIUM 8.9 mg/dL (8.5-10.1); CREATININE 0.7 mg/dL (0.6-1.0); POTASSIUM 3.5 mmol/L (3.5-5.1)
--- NOTE | 2019-06-10 06:22 | NUR ---
CONTINUES TO HAVE A LOOSE CONGESTED COUGH. SHE IS COOPERATIVE, BUT CONFUSED AT TIMES. COMPLAINS OF PAIN IN HER BACK. CAREPLAN REVIEWED.
[2019-06-10 07:13] VITALS: BP 170/73
--- NOTE | 2019-06-10 10:27 | NUR ---
ASSESSMENT: CM REVIEWED CHART AND MET WITH PATIENT AT THE BEDSIDE. 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 PT REPORTS SHE USES A WALKER/WHEELCHAIR THERE FOR AMBULATION. PT STATES SHE IS ON THE THIRD FLOOR THERE. PT REPORTS SHE ANTICIPATES DISCHARGING [facility] WHEN MEDICALLY STABLE. CM CONTACTED THE [facility] AND SPOKE WITH HOLLY CARDENAS TO UPDATE HER AND SHE REQUEST WE FAX CLINICAL TO [phone]. CM FAXED INFORMATION. CM ATTEMPTED TO REACH PATIENTS DAUGHTERS BUT NUMBERS LISTED ARE NOT WORKING. CM WILL CONTINUE TO FOLLOW TO ASSIST NEEDED.
[2019-06-10 11:07] VITALS: BP 188/68
[2019-06-10 15:33] VITALS: BP 173/60
[2019-06-10 19:17] VITALS: BP 179/58
[2019-06-11 00:05] VITALS: BP 179/67
[2019-06-11 03:25] VITALS: BP 153/77
--- NOTE | 2019-06-11 04:34 | NUR ---
forgets to call for assist out of bed. she usually sets of bed alarm. more clear with her thinking this shift. she has rested quietly tonight. careplan reviwed.
[2019-06-11 07:44] VITALS: BP 190/52
[2019-06-11 11:00] VITALS: BP 178/49
--- NOTE | 2019-06-11 12:40 | NUR ---
SW reviewed chart and spoke with nursing and attending physician. Pt is progressing towards goals for discharge. Discharge back to [facility] is anticipated for today. Awaiting final discharge orders/summary at this time. SW met with pt at bedside to discuss discharge plan. Pt is hoping to go home today. supervisor coffee to coordinate and notify family when discharge orders/summary are available. SW is following to assist as needed with discharge planning.
[2019-06-11] MEDS ORDERED: COZAAR100 MG PO (13:02)
[2019-06-11] MEDS ORDERED: METOPROLOL SUCC50 MG PO (13:02)
[2019-06-11] MEDS ORDERED: CEFUROXIME250 MG PO (13:03)
--- NOTE | 2019-06-11 14:59 | NUR ---
Patient to dc today, back to [facility], [facility] will pick patient up between 4 and 430 pm today, 3L oxygen. DP faxed dc papers to [facility] and called and spoke with Pat at [facility]. DP notified unit and sent papers for cc envelope.
--- NOTE | 2019-06-12 12:30 | D ---
[facility] [address] [place] [address] DISCHARGE SUMMARY Name: DONITA RICHTER Room #: 351-P [facility] IN M.R.#: [id number] Admission: 06/07/19 Attend Phys: Omid Kamara MD Discharge: 06/11/19 Date of : 36 Report #: [id number] THIS REPORT FOR: //name// CC: Omid Kamara FINAL DIAGNOSES: 1. Acute urinary tract infection. 2. Acute urinary retention. 3. Asthma. 4. Diabetes type 2. 5. Hypertension. 6. Acute kidney injury, resolved. HOSPITAL COURSE: The patient was admitted with abdominal pain and was diagnosed with urinary tract infection due to acute urinary retention, which also precipitated an acute kidney injury. A Adame catheter was placed and she had about 600 mL of retained urine. Her home medications were continued and she was treated with empiric Rocephin and IV fluids. By the third hospital day, her creatinine had normalized and fluids were discontinued. She complained of some difficulty breathing despite normal saturations. Chest x-ray showed atelectasis and she was given a dose of Lasix and treated with incentive spirometer. Adame catheter was removed 24 hours prior to discharge and she was voiding. PHYSICAL EXAMINATION: GENERAL: On the day of discharge, she was resting in bed, in no distress. VITAL SIGNS: Stable. LUNGS: Clear. HEART: Regular. ABDOMEN: Soft, normoactive bowel sounds. EXTREMITIES: No edema. DISPOSITION: She will be discharged to home with diabetic diet, activity as tolerated, resume all home medications plus Ceftin b.i.d. for 7 more days. Follow up lab data in 2 days and in 1 week to monitor her creatinine. <ELECTRONICALLY SIGNED> By: Ever Babin MD 06/12/19 1230 1323 1355 Ever Babin MD /nt
== END 2019-06-11 16:25 | DRG 682 ==
LOC: ER 10:19 → 3W 13:24 → EROBS 13:24 → 3W 14:47
PROVIDERS: Emergency Medicine; Internal Medicine Geriatric Medicine; ADMIT Internal Medicine
DX: N17.9 Acute kidney failure, unspecified (principal); G93.41 Metabolic encephalopathy; N30.00 Acute cystitis without hematuria; J44.9 Chronic obstructive pulmonary disease, unspecified; E11.9 Type 2 diabetes mellitus without complications; R33.9 Retention of urine, unspecified; E87.8 Other disorders of electrolyte and fluid balance, not elsewhere classified; E89.0 Postprocedural hypothyroidism; I10 Essential (primary) hypertension; J45.909 Unspecified asthma, uncomplicated; Z79.82 Long term (current) use of aspirin; Z79.51 Long term (current) use of inhaled steroids; Z79.899 Other long term (current) drug therapy; Z88.5 Allergy status to narcotic agent; Z88.2 Allergy status to sulfonamides; Z88.1 Allergy status to other antibiotic agents; Z88.8 Allergy status to other drugs, medicaments and biological substances; Z90.49 Acquired absence of other specified parts of digestive tract; Z90.710 Acquired absence of both cervix and uterus; Z88.0 Allergy status to penicillin; Z23 Encounter for immunization
CPT/HCPCS: 10879

== ENCOUNTER → 2019-08-09 | Outpatient (CLI) | payer OTHER ==
[~2019-08-09] VITALS: Ht 147.3 cm; Wt 74.4 kg
[~2019-08-09] MED LIST changes: +12-HOUR CO30 MG/5 ML PO; +ASPIRIN EC325 MG PO; +BENTYL 10 MG CA10 MG PO; +BUPROPION XL300 MG PO; +CEFUROXIME250 MG PO; +COZAAR 25 MG TA25 M1 PO; +DOXEPIN HC10 MG/1 ML PO; +FLOMAX0.4 MG PO; +FUROSEMIDE 20 M20 MG PO; +KLOR-CON 10 ER10 MEQ PO; +LAMICTAL 25 MG25 MG PO; +LAMOTRIGINE250 MG PO; +LASIX 40 MG TAB40 MG PO; -LEVOTHYROXINE0.05 MG PO; +LEXAPRO20 MG PO; +LIPITOR 40 MG T40 M1 PO; +LOPERAMIDE 2 MG2 MG PO; +LOPRESSOR50 MG PO; +MACROBID 100 M100 MG PO; +MUCUS ER600 M1 PO; +NEURONTIN 300M300 M2 PO; +NORCO 7.5-3251 EACH PO; +NORVASC5 M1 PO; +NYSTATIN1 EA10 TOP; +PROTONIX40 M2 PO; +PULMICORT0.5 MG/2 M INH; +SYNTHROID50 MCG PO; +SYSTANE 0.3-0.1 EACH EA. EYE; -TUMS; +TUMS ULTRA400 MG PO; +TYLENOL325 M1 PO; +VITAMIN D32000 UNIT PO; +VOLTAREN GEL 1100 G1 TOP; +XOPENEX1.25 MG/3 INH; +ZOFRAN4 MG PO
--- NOTE | 2019-08-12 16:06 | PATH ---
[facility] [place] [address] PATHOLOGY RPT PROCEDURE Name: MEREDITH RICHTER Room #: REG [facility] M..#: [id number] Admission: 08/09/19 Date of : 37 Discharge: Report #: [id number] Path Case #: [id number] [facility] Accession Number: [id number] . 01 Material submitted: . PART A: small bowel - SMALL BOWEL BIOPSY DUE TO DIARRHEA R/O CELIAC PART B: stomach - BIOPSY OF GASTRITIS PART C: ileo-cecal valve - POLYP AT ILEOCECAL VALVE PART D: cecum - RANDOM BIOPSY CECUM R/O COLITIS PART E: colon - RANDOM BIOPSY AT RIGHT COLON AND TRANSVERSE COLON R/O COLITIS. Modifiers: right, transverse PART F: colon - RANDOM BIOPSY AT LEFT COLON. Modifiers: left PART G: rectum - RANDOM BIOPSY AT RECTUM . 01 Clinical history: . Abnormal CT colon, diarrhea . 02 Diagnosis: A. Small bowel mucosa, small bowel, endoscopic biopsy: - No diagnostic abnormalities present. - Negative for villous blunting or increase in intraepithelial lymphocytes. . B. Gastric mucosa, gastritis, endoscopic biopsy: - Mild chronic active gastritis. - Negative for intestinal metaplasia or atrophy. - Negative for Helicobacter pylori (properly controlled immunohistochemical stain performed). . C. Polyp, at ileocecal valve, endoscopic biopsy: - Inflammatory polyp associated with hyperplastic changes. - Negative for dysplasia or malignancy. . D. Large intestinal mucosa, cecum, rule out colitis, endoscopic biopsy: - Focal non-specific acute cryptitis along with increased apoptosis, see comment. - Negative for dysplasia or malignancy. - Negative for microscopic colitis. . E. Large intestinal mucosa, right colon and transverse colon, endoscopic biopsy: - Focal non-specific acute cryptitis, see comment. - Negative for dysplasia or malignancy. - Negative for microscopic colitis. - Few pigmented macrophages within lamina propria, compatible with melanosis coli. . F. Large intestinal mucosa, left colon, endoscopic biopsy: [facility] [address] [place] [address] PATHOLOGY RPT PROCEDURE Name: MEREDITH RICHTER Room #: REG [facility]..#: [id number] Admission: 08/09/19 Date of : 37 Discharge: Report #: [id number] Path Case #: [id number] - Mild focal acute colitis associated with fibrosis within lamina propria. - Negative for dysplasia or malignancy. - Negative for microscopic colitis. . G. Large intestinal mucosa, rectum, endoscopic biopsy: - No significant diagnostic abnormalities present. - Negative for acute colitis. - Negative for microscopic colitis. - Negative for dysplasia or malignancy. LB 08/12/2019 1326 Local . 02 Comment: Sections of the colonic mucosa designated "cecum, right colon and transverse colon as well as left colon" show focal cryptitis, and a moderately cellular lamina propria composed predominantly of lymphocytes and plasma cells and occasional eosinophils. Surface ulceration is not identified. There are no crypt abscesses, granulomas or viral inclusions. The process affects all the fragments with a similar intensity. Given the description, the differential diagnosis includes focal acute self-limited episode of colitis, resolving episode of colitis, medication/drug induced colitis including bowel preparation as well as laxative use, and acute diverticulitis. Please correlate with clinical as well as endoscopic findings. (IUV/db; 08/12/2019) . 02 Electronically signed: . Janay Nolan MD, Pathologist NPI- [id number] . 01 Gross description: . A. Received in formalin labeled "Meredith Richter, small bowel BX due to diarrhea rule out celiac" is a 1.5 x 0.6 x 0.1 cm aggregate of clinton-brown mucosa fragments. The specimen is submitted in A1. . B. Received in formalin labeled "Meredith Richter, BX of gastritis" is a 1.3 x 0.5 x 0.1 cm aggregate of clinton-brown mucosa fragments. The specimen is submitted in B1. . C. Received in formalin labeled "Meredith Richter, polyp at ileocecal valve" is a 0.5 x 0.5 x 0.1 cm aggregate of clinton-brown mucosa fragments. The specimen is submitted in C1. . D. Received in formalin labeled "Meredith Richter, random BX cecum rule out colitis" is a 1.5 x 0.6 x 0.1 cm aggregate of clinton-brown mucosa fragments. The specimen is submitted in D1. . E. Received in formalin labeled "Meredith Richter, random BX of [facility] [address] [place] [address] PATHOLOGY RPT PROCEDURE Name: MEREDITH RICHTER S Room #: REG [facility] Davalos.#: [id number] Admission: 08/09/19 Date of : 36 Discharge: Report #: [id number] Path Case #: [id number] colon and transverse colon rule out colitis" is a 2.0 x 0.5 x 0.1 cm aggregate of clinton-brown mucosa fragments. The specimen is submitted in E1. . F. Received in formalin labeled "Meredith Richter, random BX of left colon" is a 1.3 x 0.6 x 0.1 cm aggregate of clinton-brown mucosa fragments. The specimen is submitted in F1. . G. Received in formalin labeled "Krish Meredith, random BX of rectum" is a 0.8 x 0.7 x 0.1 cm aggregate of clinton-brown mucosa fragments. The specimen is submitted in G1. ([facility]; 08/10/2019) [facility] 08/10/2019 0924 Local . 02 Pathologist provided ICD-10: K29.50, K51.40, K52.9, R19.7 . 02 CPT . 430883, 980322, 655134, 726565, 887804, 883795, 620564, [id number] Specimen Comment: A courtesy copy of this report has been sent to [phone] Specimen Comment: Report sent to Performed at: [address], [place] [id number] MD Floyd Rock MD Phone: [phone] Performed at: [address] [id number] MD Janay Nolan MD Phone: [phone]
--- NOTE | 2019-08-14 16:47 | P ---
[facility] [address] [place] [address] PROCEDURE REPORT Name: DONITA RICHTER Room #: REG [facility]#: [id number] Admission: 08/09/19 Attend Phys: Rodrick Gray MD Discharge: Date of : 36 Report #: [id number] THIS REPORT FOR: //name// CC: Rodrick Yin MD DATE OF SERVICE: 08/09/2019 BRIEF HISTORY: The patient is an 84-year-old woman with reflux disease and also increasing diarrhea symptoms. She does have a history of diabetes. PREOPERATIVE DIAGNOSES: Reflux disease and diarrhea. POSTOPERATIVE DIAGNOSIS: Bhlrpllo-wl-jrhqta diffuse gastritis, antrum and body. MEDICATIONS: Deep sedation with propofol per anesthesia. SPECIMENS: 1. Small bowel biopsies to rule out celiac disease. 2. Biopsies of gastritis. ESTIMATED BLOOD LOSS: 3 mL. PROCEDURE: EGD with biopsy. FINDINGS: Prior to propofol sedation, the procedure of upper endoscopy was discussed with the patient as well as potential risks and its complications. She indicates she understands and desires to proceed. DESCRIPTION OF PROCEDURE: With the patient in left lateral decubitus position, the Olympus video endoscope was inserted in the cervical esophagus under direct vision without difficulty. Examination of this organ through its entire length revealed normal esophageal mucosa down the squamocolumnar junction. Squamocolumnar junction was inspected and noted to be unremarkable. No evidence of ulcers, erosions or Alonzo mucosa. Hiatus hernia was not seen. Scope was advanced in the stomach, was examined on end view as well as retroflexed views. There was a pattern of moderate diffuse gastritis with linear striations throughout the antrum and body. However, the mucosa was intact without ulcers or erosions. There was no endoscopic evidence of gastroparesis. Upon retroflexion, no mass lesions were seen. The pylorus, duodenal bulb and postbulbar duodenal sweep were inspected and noted to be unremarkable. Multiple random biopsies were obtained to evaluate for celiac disease. At that point, the scope was slowly withdrawn and careful circumferential views confirmed the above findings. The patient tolerated the procedure well. In addition, biopsies obtained of the gastric mucosa to evaluate for her gastritis. [facility] [address] [place] [address] PROCEDURE REPORT Name: DONITA RICHTER Ivet Room #: REG [facility].#: [id number] Admission: 08/09/19 Attend Phys: Rodrick Gray MD Discharge: Date of : 36 Report #: [id number] CONDITION OF THE PATIENT UPON DISCHARGE: Following procedure, the patient was drowsy and prepared for colonoscopy. INSTRUCTIONS TO THE PATIENT AND FAMILY AT THE TIME OF DISCHARGE: With regards to reflux disease, I do not see any evidence of active mucosal disease. She may use a PPI or H2 nicci as needed to control reflux symptoms. We will follow up on biopsies with regard to her diarrhea and the possibly celiac disease. Proceed with colonoscopy. <ELECTRONICALLY SIGNED> By: Rodrick Gray MD 08/14/19 1647 1103 2129 Rodrick Gray MD /nt
--- NOTE | 2019-08-14 16:47 | P ---
[facility] [address] [place] [address] PROCEDURE REPORT Name: DONITA RICHTER Room #: REG [facility]#: [id number] Admission: 08/09/19 Attend Phys: Rodrick Gray MD Discharge: Date of : 36 Report #: [id number] THIS REPORT FOR: //name// CC: Rodrick Yin MD OUTPATIENT COLONOSCOPY REPORT BRIEF HISTORY: The patient is an 84-year-old woman with abnormal CT of the abdomen revealing thickening of the colonic luo. There is a prior history of colitis. She also has had worsening diarrhea. PREOPERATIVE DIAGNOSIS: Abnormal CT and diarrhea. POSTOPERATIVE DIAGNOSES: 1. Polyp, ileocecal valve. 2. Moderate to severe diverticulosis coli. 3. Tattoo kadi cecum without evidence of residual neoplastic disease. MEDICATIONS: Deep sedation with propofol per anesthesia. SPECIMENS: 1. Ileocecal valve polyp. 2. Random biopsies, cecum, rule out colitis. 3. Random biopsies, right colon and transverse colon, rule out colitis. 4. Random biopsies, left colon, rule out colitis. 5. Renal biopsies, rectum, rule out colitis. ESTIMATED BLOOD LOSS: 3 mL. PROCEDURE: Colonoscopy to cecum with snare polypectomy and biopsy. FINDINGS: Prior to propofol sedation, procedure of colonoscopy discussed with the patient as well as potential risks and its complications. She indicates she understands and desires to proceed. DESCRIPTION OF PROCEDURE: With the patient in left lateral decubitus position, digital examination was completed, which revealed no abnormalities. Subsequently, the Olympus video colonoscope was introduced in the rectum, advanced under direct vision to the cecum. This was done with a minimal difficulty. The cecum was identified by the ileocecal valve and the appendiceal orifice. The cecum itself appeared to be somewhat smaller and irregular in shape. However, the overlying mucosa was completely normal without inflammatory changes. The ileocecal valve was seemed to be very proximal within the colon and it was very difficult to see the ileocecal valve, it could only be seen tangentially. I could advance the tip of the scope into the mouth of ileocecal [facility] [address] [place] [address] PROCEDURE REPORT Name: DONITA RICHTER Room #: REG [facility] Anoop.#: [id number] Admission: 08/09/19 Attend Phys: Rodrick Gray MD Discharge: Date of : 36 Report #: [id number] valve and see villous pattern, but I could not deeply intubate the ileocecal valve. In addition on one aspect was a polypoid lesion in the range of about 5-6 mm. It looks like an inflammatory polyp. However, due to the angle, we could not engage due to the snare. It was essentially removed with jumbo biopsy forceps. We obtained random biopsies of the cecum. In addition, there was an orifice, which was somewhat generous in size, which may represent the appendiceal orifice. It is also possible this could be lumen with marked narrowing. However, it was very smooth and symmetrical and overall benign appearance without any inflammatory changes. In addition to the cecum, a small tattoo was seen. I did not see evidence of residual neoplastic tissue at that point. The scope was withdrawn through the remainder of the colon. The mucosa was within normal limits, normal vascular pattern, normal light reflex. Random biopsies were obtained. An occasional diverticulum was seen upon withdrawal of the scope in the proximal colon. There was moderate diverticular disease in the sigmoid colon without endoscopic evidence of diverticulitis. Scope was withdrawn in the rectum, no abnormalities were seen. Upon retroflexion, no abnormalities were seen. In summary, there was no evidence of inflammatory disease to explain her diarrhea. CONDITION OF THE PATIENT UPON DISCHARGE: Following procedure, the patient drowsy. She will be discharged home when fully ambulatory. INSTRUCTIONS TO THE PATIENT AND FAMILY AT THE TIME OF DISCHARGE: No inflammatory changes seen. We will follow up on the path. It is noted she is on multiple medications including I believe metformin, which may be problematic with regards to her diarrhea, Given the fact she has taken multiple medication, Creon for possible post-cholecystectomy diarrhea and it is probably not a good option. She may use Imodium as needed for her diarrhea. We will follow up on biopsies and make further recommendations. At this point in life, routine colonoscopy is likely to be of minimal benefit to this patient. <ELECTRONICALLY SIGNED> By: Rodrick Gray MD 08/14/19 1647 1149 2232 Rodrick Gray MD /nt
== END | disposition home or self-care (01) ==
LOC: GI 08:32
DX: K51.40 Inflammatory polyps of colon without complications (principal); K62.89 Other specified diseases of anus and rectum; K57.30 Diverticulosis of large intestine without perforation or abscess without bleeding; K52.9 Noninfective gastroenteritis and colitis, unspecified; K29.50 Unspecified chronic gastritis without bleeding; I10 Essential (primary) hypertension; E78.00 Pure hypercholesterolemia, unspecified; F32.9 Major depressive disorder, single episode, unspecified; F41.9 Anxiety disorder, unspecified; K21.9 Gastro-esophageal reflux disease without esophagitis; J45.909 Unspecified asthma, uncomplicated; E11.9 Type 2 diabetes mellitus without complications; E03.9 Hypothyroidism, unspecified; E78.5 Hyperlipidemia, unspecified; G89.29 Other chronic pain; Z98.890 Other specified postprocedural states; Z79.899 Other long term (current) drug therapy; Z90.49 Acquired absence of other specified parts of digestive tract; Z90.710 Acquired absence of both cervix and uterus; Z86.73 Personal history of transient ischemic attack (TIA), and cerebral infarction without residual deficits; Z88.2 Allergy status to sulfonamides
CPT/HCPCS: 62110; 62900

== ENCOUNTER → 2021-08-25 | Outpatient (CLI) | payer OTHER | LOC: SJCVC 13:12 | PROVIDERS: ATTEND Nuclear Medicine Nuclear Cardiology | DX: I73.9 Peripheral vascular disease, unspecified (principal); E11.9 Type 2 diabetes mellitus without complications; J44.9 Chronic obstructive pulmonary disease, unspecified; E78.00 Pure hypercholesterolemia, unspecified; I87.2 Venous insufficiency (chronic) (peripheral); I13.0 Hypertensive heart and chronic kidney disease with heart failure and stage 1 through stage 4 chronic kidney disease, or unspecified chronic kidney disease; I50.30 Unspecified diastolic (congestive) heart failure; N18.9 Chronic kidney disease, unspecified; K21.9 Gastro-esophageal reflux disease without esophagitis; E78.5 Hyperlipidemia, unspecified; Z87.891 Personal history of nicotine dependence; Z88.0 Allergy status to penicillin; Z88.2 Allergy status to sulfonamides; Z88.8 Allergy status to other drugs, medicaments and biological substances; Z88.5 Allergy status to narcotic agent; Z79.84 Long term (current) use of oral hypoglycemic drugs; Z79.899 Other long term (current) drug therapy; Z95.5 Presence of coronary angioplasty implant and graft ==